=== PATIENT | male | born 1995 ===

== ENCOUNTER 2022-04-27 10:31 | Outpatient (REF) | payer BC, SELFPAY ==
[2022-04-27 12:00] LABS: Hematocrit 47.6 % (42.0-52.0); Hemoglobin 15.8 g/dl (14.0-18.0); Mean Corpuscular HGB Conc 33.2 g/dl (31.0-36.0); Mean Corpuscular Hemoglobin 28.7 pg (27.0-33.0); Mean Corpuscular Volume 86.5 fL (80.0-98.0); Mean Platelet Volume 10.6 fL (9.4-12.4); Platelet Count 255 X10*3/uL (160-400); Red Cell Distribution Width 12.5 % (11.0-16.0); White Blood Count 4.5 X10*3/uL (4.8-10.8)
[2022-04-27 12:30] LABS: Alanine Aminotransferase 65 U/L (0-40); Albumin Level 4.7 g/dL (3.5-5.0); Alkaline Phosphatase 55 U/L (39-117); Anion Gap 16 (12-20); Aspartate Amino Transferase 33 U/L (5-37); Bilirubin Total 0.6 mg/dL (0.0-1.0); Blood Urea Nitrogen 17 mg/dL (9-16); Calcium 9.8 mg/dL (8.4-10.2); Carbon Dioxide 27 mmol/L (22-29); Chloride 102 mmol/L (96-108); Cholesterol 163 mg/dL; Estimated Glomerular Filt Rate > 60; Glucose Fasting 137 mg/dL (60-99); HDL Cholesterol 35 mg/dL; LDL Cholesterol Calculated 110 mg/dl; Potassium 4.6 mmol/L (3.3-5.1); Sodium 140 mmol/L (135-145); Triglycerides 91 mg/dL
[2022-04-27 13:25] LABS: Folate 15.5 ng/mL (> or = 4.0); Vitamin B12 523 pg/mL (200-900)
== END 2022-04-27 10:32 | disposition home or self-care (01) ==
LOC: HO.LAB 10:31
PROVIDERS: PCP Physician Assistant; Visit Provider Physician Assistant
DX: Z13.220 Encounter for screening for lipoid disorders (principal); Z13.29 Encounter for screening for other suspected endocrine disorder; E53.8 Deficiency of other specified B group vitamins; R20.2 Paresthesia of skin
CPT/HCPCS: 36415; 80053; 80061; 82607; 82746; 84443; 85027

== ENCOUNTER 2022-05-18 10:06 | Outpatient (REF) | payer BC, SELFPAY ==
[2022-05-18 11:05] LABS: Estimated Average Glucose 151 mg/dL; Hemoglobin A1c % 6.9 %
[2022-05-18 11:16] LABS: Anion Gap 13 (12-20); Blood Urea Nitrogen 17 mg/dL (9-16); Calcium 9.3 mg/dL (8.4-10.2); Carbon Dioxide 27 mmol/L (22-29); Chloride 104 mmol/L (96-108); Estimated Glomerular Filt Rate > 60; Glucose Fasting 147 mg/dL (60-99); Potassium 4.6 mmol/L (3.3-5.1); Sodium 139 mmol/L (135-145)
== END 2022-05-18 10:07 | disposition home or self-care (01) ==
LOC: HO.LAB 10:06
PROVIDERS: PCP Physician Assistant; Visit Provider Physician Assistant
DX: R73.01 Impaired fasting glucose (principal)
CPT/HCPCS: 36415; 80048; 83036

== ENCOUNTER 2023-05-03 13:54 | Outpatient (AMB) | payer BC, SELFPAY ==
--- NOTE | 2023-05-03 13:56 | MHC.PC.OV ---
Vital Signs 05/03/23 13:58 Height 5 ft 7.2 in Weight 197 lb 6 oz BMI 30.7 BP 130/70 Blood Pressure Location Lt brachial Position Sitting Pulse 70 Pulse Source Pulse Oximeter Pulse Oximetry (%) 97 Oxygen Delivery Method Room Air Intake Visit Reasons: Samanthay, abdominal pain, 04/13 Intake Note: Patient is here to follow-up after a visit the emergency department at [facility] on 04/13/23. 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: Not Required per policy Accompanied by: Self / Same As Patient Allergies No Known Allergies [No Known Allergies*] Allergy (Verified 05/03/23 14:05) Medication List - Last Reconciled 05/03/23 by Feliz Louie PA-C metformin 500 mg PO DAILY 30 days Tobacco use date assessed: 05/03/23 Dental Screening Dental Screen Date: 05/03/23 Did you have a dental visit in the last 12 months?: No Did you have a dental problem in the last 6 months where you did not have access to dental care?: No Was dental information given to patient?: No HPI Swati, abdominal pain, 04/13 HPI Details Patient is a 28-year-old male here today for an ER follow-up visit. Was seen at the ER on April 13 for acute abdominal pain. Abdominal pain was relocated in the right upper quadrant and radiated to his back. He did get received a CT scan which did show a large fatty liver and labs/urine where stable. Otherwise denies any fever, changes in stool or urine. He unfortunately continues to have the right upper quadrant pain/ right flank pain to less severity and only intermittent. He denies any of his pain being associated with his diet. [facility] Surgical History No pertinent past surgical history Family History Mother FH: HTN (hypertension) Lupus Fibromyalgia COPD (chronic obstructive pulmonary disease) Osteoarthritis Degenerative, intervertebral disc, cervical Type II diabetes mellitus Mental health disorder Father Type II diabetes mellitus Arthritis Social History Housing: Apartment Alcohol intake: current Alcohol intake frequency: a few times a month Alcohol type: beer and hard liquor Patient Tobacco Use Status: Former Tobacco user Tobacco use type: Cigarette Cigarettes Per Day: 3 Years Smoked: Pt stop 12/21/21 e-Cigarette/Vaping Use: Former Use Second Hand Smoke Exposure: Yes Substance Use Type: Marijuana service: No Current occupational status: employed 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 Robert Alvarado, Katie Adame, Patel Vaughn and colleagues, with an educational jenny from [employer]. Review of Systems Const Denies headache(s) Eyes Denies loss of vision ENT Denies vertigo, Denies dizziness, Denies headache(s) and Denies sore throat Card Denies chest pain, Denies leg edema and Denies lightheadedness Resp Denies cough, Denies hemoptysis and Denies wheezing GI Denies abdominal pain, Denies melena, Denies constipation, Denies diarrhea and Denies vomiting Denies dysuria, Denies urinary frequency and Denies urinary urgency Musc Denies arthralgias, Denies joint swelling, Denies numbness and Denies tingling Neuro Denies Abnormal speech present, Denies behavioral changes, Denies vertigo, Denies dizziness, Denies headache(s), Denies loss of vision, Denies memory loss, Denies numbness and Denies tingling Psych Denies anxiety, Denies behavioral changes, Denies depression, Denies memory loss and Denies panic attacks Jason/Lymph Denies easy bleeding and Denies easy bruising Aller/Immun Denies wheezing Physical exam (Primary Care) Vital Signs: Last Vital Signs Pulse 70 05/03/23 13:58 BP 130/70 05/03/23 13:58 Pulse Ox 97 05/03/23 13:58 Oxygen Delivery Method Room Air 05/03/23 13:58 BMI result Body Mass Index 30.7 Tobacco/Smoking Status: Tobacco use Status Tobacco use date assessed 05/03/23 05/03/23 14:03 Patient Tobacco Use Status Former Tobacco user 05/03/23 14:03 Tobacco use type Cigarette 05/03/23 14:03 e-Cigarette/Vaping Use Former Use 05/03/23 14:03 Thrive Assessment: Date of Thrive Assessment Date Thrive assessed 11/30/22 05/03/23 14:03 Const General: healthy appearing, no acute distress, alert and awake Nutritional Appearance: well nourished Orientation/consciousness: oriented to person, oriented to place and oriented to time HENMT Ears: TM's normal bilaterally General nose exam: Normal nasal mucous membranes and turbinates present Eyes Conjunctivae: conjunctivae normal Sclerae: sclerae normal Pupils: Equal, round and reactive pupils present Neck Neck: Yes no lymphadenopathy and Yes no JVD Thyroid: Thyroid normal Carotids: no bruits Resp Effort & Inspection: normal respiratory effort and not tachypneic Auscultation: no crackles, no rales, no rhonchi and no wheezes Cardio Rate: regular rate Rhythm: regular rhythm Heart sounds: no murmurs and normal S1 and S2 GI Palpation (GI): Soft to palpation, nontender, no hepatomegaly and no splenomegaly Auscultation: normal bowel sounds Abdomen image: 1. PAIN TO PALPATION IN THE AREA OUTLINED. Skin General skin exam: no rashes or lesions noted and dry skin Neuro General: oriented to person, oriented to place and oriented to time Cranial nerves: Yes Equal, round and reactive pupils present Speech: No Abnormal speech present Gait exam (Neuro): Normal gait present Motor exam (neuro): no tremor noted Extrem Right upper extremity: full ROM Left upper extremity: full ROM Right lower extremity: full ROM; no edema Left lower extremity: full ROM; no edema Psych Mental Status: mental status grossly normal Speech and movement: Normal speech and movement present Affect: normal affect Attitude: cooperative Thought process: Normal thought process present Assessment and Plan Assessment & Plan (1) Right flank pain: Code(s): R10.9 - Unspecified abdominal pain Plan: Patient's pain is mostly located in right retro peritoneal region. Some concern for nephrolithiasis in this case thus will send for ultrasound of right kidney to evaluate for nephrolithiasis. Will also send for urine to evaluate for UTI. If no concerning findings likely musculoskeletal etiology (2) RUQ abdominal pain: Code(s): R10.11 - Right upper quadrant pain Plan: As per HPI patient was seen several weeks ago for right upper quadrant/right flank pain, CT of abdomen without any acute findings though did have fatty liver disease. Labs in urine were reported as unremarkable. Will get dedicated ultrasound of abdomen to evaluate liver and gallbladder. (3) Fatty liver: Code(s): K76.0 - Fatty (change of) liver, not elsewhere classified Plan: As above Orders: Orders UA CC w/rflx Micro + Cult 05/03/23 R10.9 - Unspecified abdominal pain, R30.0 - Dysuria US renal RT 05/03/23 R10.9 - Unspecified abdominal pain US abdomen limited 05/03/23 K76.0 - Fatty (change of) liver, not elsewhere classified, R10.11 - Right upper quadrant pain Coding Level of Care Code Est Pt Level 4 (93647) Diagnoses Right flank pain R10.9 RUQ abdominal pain R10.11 Fatty liver K76.0
[2023-05-03 13:58] VITALS: BP 130/70; PULSE 70; O2SAT 97; BMI 30.7
== END 2023-05-03 14:29 | disposition home or self-care (01) ==
PROVIDERS: PCP Physician Assistant; Visit Provider Physician Assistant
DX: R10.9 Unspecified abdominal pain (principal); R10.11 Right upper quadrant pain; K76.0 Fatty (change of) liver, not elsewhere classified
CPT/HCPCS: 99214

== ENCOUNTER 2023-05-22 08:59 | Outpatient (REF) | payer BC, SELFPAY ==
--- NOTE | ~2023-05-22 | US_ITS ---
EXAMINATION: US ABDOMEN LIMITED CLINICAL INFORMATION: Right upper quadrant pain. COMPARISON: None available. TECHNIQUE: Real-time imaging of the right upper quadrant abdominal viscera. FINDINGS: PANCREAS: Normal head and body, tail is partly obscured by bowel gas LIVER: The liver is normal in size. The liver contour is normal. There is diffuse increased liver parenchymal echogenicity, consistent with hepatic steatosis. No focal hepatic lesion. There is no intrahepatic biliary duct dilatation seen. GALLBLADDER: Normal. The gallbladder is physiologically distended without evidence of stones, sludge, polyps, wall thickening or pericholecystic fluid. COMMON BILE DUCT: Normal in caliber measuring 0.4 cm in diameter. RIGHT KIDNEY: Normal. No hydronephrosis. No renal calculi or focal parenchymal lesions. The kidney measures 11.4 cm in maximum dimension. FREE FLUID: None. US/US abdomen limited IMPRESSION: Hepatic steatosis.
== END 2023-05-22 09:00 | disposition home or self-care (01) ==
LOC: HO.HMGCX 08:59
PROVIDERS: PCP Physician Assistant; Visit Provider Physician Assistant
DX: R10.11 Right upper quadrant pain (principal); K76.0 Fatty (change of) liver, not elsewhere classified
CPT/HCPCS: 76705

== ENCOUNTER 2023-06-13 07:53 | Outpatient (REF) | payer BC, SELFPAY ==
[2023-06-13 08:38] LABS: Hematocrit 44.6 % (42.0-52.0); Hemoglobin 15.1 g/dl (14.0-18.0); Mean Corpuscular HGB Conc 33.9 g/dl (31.0-36.0); Mean Corpuscular Hemoglobin 29.3 pg (27.0-33.0); Mean Corpuscular Volume 86.4 fL (80.0-98.0); Mean Platelet Volume 10.5 fL (9.4-12.4); Platelet Count 192 X10*3/uL (160-400); Red Blood Count 5.16 X10*6/uL (4.60-5.80); Red Cell Distribution Width 13.1 % (11.0-16.0); White Blood Count 4.3 X10*3/uL (4.8-10.8)
[2023-06-13 09:18] LABS: Alanine Aminotransferase 91 U/L (0-40); Albumin Level 4.6 g/dL (3.5-5.0); Alkaline Phosphatase 56 U/L (39-117); Anion Gap 15 (12-20); Aspartate Amino Transferase 52 U/L (5-37); Bilirubin Total 0.4 mg/dL (0.0-1.0); Blood Urea Nitrogen 17 mg/dL (9-16); Calcium 9.7 mg/dL (8.4-10.2); Carbon Dioxide 25 mmol/L (22-29); Chloride 103 mmol/L (96-108); Cholesterol 171 mg/dL (<200); Estimated Glomerular Filt Rate > 60; Glucose Fasting 148 mg/dL (60-99); HDL Cholesterol 38 mg/dL (>40); LDL Cholesterol Calculated 119 mg/dL (<100); Potassium 4.2 mmol/L (3.3-5.1); Sodium 139 mmol/L (135-145); Total Protein 7.8 g/dL (6.5-8.0); Triglycerides 73 mg/dL (<150)
[2023-06-13 09:26] LABS: TSH reflex Free T4 2.28 uIU/mL (0.32-4.0)
[2023-06-13 09:57] LABS: Appearance Urine Clear; Color Urine Dark Yellow; Glucose Urine UA Negative (Negative); Leukocyte Esterase Urine Negative (Negative); Nitrite Urine Negative (Negative); PH 5.5 (5.0-9.0); Specific Gravity - Urine >= 1.030 (1.005-1.025); UMIC TRIGGER UACC YES; Urine Blood Negative (Negative); Urine Ketones Negative (Negative); Urine Protein 100 (2+) mg/dL (Neg-Trace)
[2023-06-13 10:08] LABS: Bacteria Urine None Seen (None Seen); Hyaline Casts Urine 0-2 /LPF (0-2); RBC Urine 0-2 /HPF (0-2); Squamous Epithelial Cell Urine 0-2 /HPF (0-2); WBC Urine 0-5 /HPF (0-5)
== END 2023-06-13 07:54 | disposition home or self-care (01) ==
LOC: HO.LAB 07:53
PROVIDERS: PCP Physician Assistant; Visit Provider Physician Assistant
DX: E66.09 Other obesity due to excess calories (principal); Z68.30 Body mass index [BMI] 30.0-30.9, adult; E11.9 Type 2 diabetes mellitus without complications
CPT/HCPCS: 36415; 80053; 80061; 81001; 81003; 84443; 85027

== ENCOUNTER 2023-06-14 15:13 | Outpatient (AMB) | payer BC, SELFPAY ==
--- NOTE | 2023-06-14 15:20 | MHC.PC.OV ---
Vital Signs 06/14/23 15:21 Height 5 ft 7.2 in Weight 197 lb 2 oz BMI 30.7 BP 132/84 Blood Pressure Location Lt brachial Position Sitting Respiration 17 Pulse 65 Pulse Source Pulse Oximeter Pulse Oximetry (%) 98 Oxygen Delivery Method Room Air Intake Visit Reasons: f/u DMII Intake Note: Patient is here to follow up on DMII. Instructional Technology Coordinator Required: No Accompanied by: Self / Same As Patient Allergies No Known Allergies [No Known Allergies*] Allergy (Verified 06/14/23 15:31) Tobacco use date assessed: 05/03/23 Dental Screening Dental Screen Date: 06/14/23 Did you have a dental visit in the last 12 months?: Yes Did you have a dental problem in the last 6 months where you did not have access to dental care?: No Was dental information given to patient?: Patient has dentist HPI f/u DMII HPI Details Patient is a 28-year-old male here today for a follow-up visit.? Patient has a past medical history significant for type 2 diabetes, elevated blood pressure readings, obesity. .. Obesity :? Has been able to lose a few lb since last office visit.? Has been working on his lifestyle modifications.. . Type 2 diabetes:? Has not been taking any metformin. Today's A1c still above 6.5. He is willing to start metformin 500 once a day. Lipid panel showing slightly elevated LDL for his cardiovascular risk. We disc discuss the possible need of starting statin medication though will continue lifestyle modifications and recheck lipids in the next 4 months.? He recently started going back to the gym ., Fatty liver disease: Most recent ultrasound abdomen showing consistent evidence of fatty liver disease. Most recent liver enzymes slightly elevated. He will work on lifestyle modifications and weight reduction as treatment for this fatty liver disease. Laboratory Tests 05/18/22 11/30/22 06/13/23 10:20 15:34 08:17 WBC 4.3 L Hgb 15.1 Creatinine 0.85 Fasting Glucose 148 H Hgb A1c (Clinic) 6.9 H Hemoglobin A1c % 6.9 ALT 91 H Cholesterol 171 LDL Cholesterol, C alc 119 H PFSH Surgical History No pertinent past surgical history Family History Mother FH: HTN (hypertension) Lupus Fibromyalgia COPD (chronic obstructive pulmonary disease) Osteoarthritis Degenerative, intervertebral disc, cervical Type II diabetes mellitus Mental health disorder Father Type II diabetes mellitus Arthritis Social History Housing: Apartment Alcohol intake: current Alcohol intake frequency: a few times a month Alcohol type: beer and hard liquor Patient Tobacco Use Status: Former Tobacco user Tobacco use type: Cigarette Cigarettes Per Day: 3 Years Smoked: Pt stop 12/21/21 e-Cigarette/Vaping Use: Former Use Second Hand Smoke Exposure: Yes Substance Use Type: Marijuana service: No Current occupational status: employed 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 Robert Alvarado, Katie Adame, Patel Vaughn and colleagues, with an educational jenny from [employer]. Review of Systems Const Denies headache(s) Eyes Denies loss of vision ENT Denies vertigo, Denies dizziness, Denies headache(s) and Denies sore throat Card Denies chest pain, Denies leg edema and Denies lightheadedness Resp Denies cough, Denies hemoptysis and Denies wheezing GI Denies abdominal pain, Denies melena, Denies constipation, Denies diarrhea and Denies vomiting Denies dysuria, Denies urinary frequency and Denies urinary urgency Musc Denies arthralgias, Denies joint swelling, Denies numbness and Denies tingling Neuro Denies Abnormal speech present, Denies behavioral changes, Denies vertigo, Denies dizziness, Denies headache(s), Denies loss of vision, Denies memory loss, Denies numbness and Denies tingling Psych Denies anxiety, Denies behavioral changes, Denies depression, Denies memory loss and Denies panic attacks Jason/Lymph Denies easy bleeding and Denies easy bruising Aller/Immun Denies wheezing Physical exam (Primary Care) Vital Signs: Last Vital Signs Pulse 65 06/14/23 15:21 Resp 17 06/14/23 15:21 BP 132/84 06/14/23 15:21 Pulse Ox 98 06/14/23 15:21 Oxygen Delivery Method Room Air 06/14/23 15:21 BMI result Body Mass Index 30.7 Tobacco/Smoking Status: Tobacco use Status Tobacco use date assessed 05/03/23 06/14/23 15:25 Patient Tobacco Use Status Former Tobacco user 06/14/23 15:25 Tobacco use type Cigarette 06/14/23 15:25 e-Cigarette/Vaping Use Former Use 06/14/23 15:25 Thrive Assessment: Date of Thrive Assessment Date Thrive assessed 11/30/22 06/14/23 15:25 Const General: healthy appearing, no acute distress, alert and awake Nutritional Appearance: well nourished Orientation/consciousness: oriented to person, oriented to place and oriented to time HENMT Ears: TM's normal bilaterally General nose exam: Normal nasal mucous membranes and turbinates present Eyes Conjunctivae: conjunctivae normal Sclerae: sclerae normal Pupils: Equal, round and reactive pupils present Neck Neck: Yes no lymphadenopathy and Yes no JVD Thyroid: Thyroid normal Carotids: no bruits Resp Effort & Inspection: normal respiratory effort and not tachypneic Auscultation: no crackles, no rales, no rhonchi and no wheezes Cardio Rate: regular rate Rhythm: regular rhythm Heart sounds: no murmurs and normal S1 and S2 GI Palpation (GI): Soft to palpation, nontender, no hepatomegaly and no splenomegaly Auscultation: normal bowel sounds Skin General skin exam: no rashes or lesions noted and dry skin Neuro General: oriented to person, oriented to place and oriented to time Cranial nerves: Yes Equal, round and reactive pupils present Speech: No Abnormal speech present Gait exam (Neuro): Normal gait present Motor exam (neuro): no tremor noted Extrem Right upper extremity: full ROM Left upper extremity: full ROM Right lower extremity: full ROM; no edema Left lower extremity: full ROM; no edema Psych Mental Status: mental status grossly normal Speech and movement: Normal speech and movement present Affect: normal affect Attitude: cooperative Thought process: Normal thought process present Results AMB Hemoglobin A1c AMB Hemoglobin A1c 6.7 % Last Edit by JESUS Bravo on 06/14/23 15:35 Results Reviewed Results Reviewed: Laboratory Last Values Hgb A1c (Clinic) 6.7 % (4.0-6.0) H 06/14/23 15:34 Assessment and Plan Assessment & Plan (1) DMII (diabetes mellitus, type 2): Code(s): E11.9 - Type 2 diabetes mellitus without complications Qualifiers: Diabetes mellitus complication status: without complication Diabetes mellitus rat exterminator insulin use: without rat exterminator use Qualified Code(s): E11.9 - Type 2 diabetes mellitus without complications Plan: Patient's type 2 diabetes fairly controlled though like tighter control due to his age. He is willing to start metformin 500 mg daily, Advised him to be more adherent to the medication on a daily basis. Warned about side effects of GI discomfort. Goal A1c to be below 6.5 (2) Obese: Code(s): E66.9 - Obesity, unspecified Qualifiers: Body mass index: BMI 30.0-30.9 Obesity classification: adult class 1 (BMI 30 - 34.9) Obesity type: due to excess calories Serious obesity comorbidity presence: without serious comorbidity Qualified Code(s): E66.09 - Other obesity due to excess calories; Z68.30 - Body mass index [BMI] 30.0-30.9, adult Plan: Patient does understand his BMI is slightly above 30 and continues to work on being more physically active and adapting to better eating habits to reduce his weight further. (3) HLD (hyperlipidemia): Code(s): E78.5 - Hyperlipidemia, unspecified Qualifiers: Hyperlipidemia type: mixed hyperlipidemia Qualified Code(s): E78.2 - Mixed hyperlipidemia Plan: Patient's most recent lipid panel showed noting an LDL of 119. Goal LDL to be below 100. Will work on lifestyle modifications to reduce high cholesterol foods in his diet. Orders: Orders Comprehensive [place]. Panel Fast 06/14/23 E11.9 - Type 2 diabetes mellitus without complications, E78.5 - Hyperlipidemia, unspecified Microalbumin, Random (w Creat) 06/14/23 E78.5 - Hyperlipidemia, unspecified, I10 - Essential (primary) hypertension Complete Blood Count no Diff 06/14/23 E78.5 - Hyperlipidemia, unspecified, I10 - Essential (primary) hypertension Lipid Panel 06/14/23 E78.5 - Hyperlipidemia, unspecified, I10 - Essential (primary) hypertension AMB Hemoglobin A1c 06/14/23 E11.9 - Type 2 diabetes mellitus without complications Medications: Refilled metformin 500 mg PO DAILY 30 days 30 tabs 3RF E11.9 - Type 2 diabetes mellitus without complications Coding Level of Care Code Est Pt Level 4 (20951) Diagnoses Type 2 diabetes mellitus without complication, without long-term current use of insulin E11.9 Diabetes mellitus complication status: without complication Diabetes mellitus senior living insulin use: without senior living use Class 1 obesity due to excess calories without serious comorbidity with body mass index (BMI) of 30.0 to 30.9 in adult E66.09; Z68.30 Body mass index: BMI 30.0-30.9 Obesity classification: adult class 1 (BMI 30 - 34.9) Obesity type: due to excess calories Serious obesity comorbidity presence: without serious comorbidity Mixed hyperlipidemia E78.2 Hyperlipidemia type: mixed hyperlipidemia
[2023-06-14 15:21] VITALS: BP 132/84; PULSE 65; RESP 17; O2SAT 98; BMI 30.7
== END 2023-06-14 15:49 | disposition home or self-care (01) ==
PROVIDERS: PCP Physician Assistant; Visit Provider Physician Assistant
DX: E11.9 Type 2 diabetes mellitus without complications (principal)
CPT/HCPCS: 83036; 99214

== ENCOUNTER 2023-10-18 08:37 | Outpatient (REF) | payer BC, SELFPAY ==
[2023-10-18 09:13] LABS: Hematocrit 46.2 % (42.0-52.0); Hemoglobin 15.8 g/dl (14.0-18.0); Mean Corpuscular HGB Conc 34.2 g/dl (31.0-36.0); Mean Corpuscular Hemoglobin 28.7 pg (27.0-33.0); Mean Corpuscular Volume 83.8 fL (80.0-98.0); Mean Platelet Volume 10.6 fL (9.4-12.4); Platelet Count 210 X10*3/uL (160-400); Red Blood Count 5.51 X10*6/uL (4.60-5.80); Red Cell Distribution Width 12.5 % (11.0-16.0); White Blood Count 4.1 X10*3/uL (4.8-10.8)
[2023-10-18 09:47] LABS: Alanine Aminotransferase 56 U/L (0-40); Albumin Level 4.5 g/dL (3.5-5.0); Alkaline Phosphatase 56 U/L (39-117); Anion Gap 12 (12-20); Aspartate Amino Transferase 34 U/L (5-37); Bilirubin Total 0.7 mg/dL (0.0-1.0); Blood Urea Nitrogen 20 mg/dL (9-16); Calcium 9.5 mg/dL (8.4-10.2); Carbon Dioxide 27 mmol/L (22-29); Chloride 102 mmol/L (96-108); Cholesterol 127 mg/dL (<200); Estimated Glomerular Filt Rate > 60; Glucose Fasting 173 mg/dL (60-99); HDL Cholesterol 35 mg/dL (>40); LDL Cholesterol Calculated 82 mg/dL (<100); Potassium 3.9 mmol/L (3.3-5.1); Sodium 137 mmol/L (135-145); Total Protein 7.7 g/dL (6.5-8.0); Triglycerides 50 mg/dL (<150)
[2023-10-18 09:51] LABS: Creatinine Urine 269.76 mg/dL; Microalbum/Creatinine Ratio Ur 15.1 ug/mg cr (<30)
[2023-10-18 09:54] LABS: Appearance Urine Clear; Color Urine Dark Yellow; Glucose Urine UA Negative (Negative); Leukocyte Esterase Urine Negative (Negative); Nitrite Urine Negative (Negative); Specific Gravity - Urine >= 1.030 (1.005-1.025); Urine Blood Negative (Negative); Urine Ketones Trace mg/dL (Negative); Urine Protein Trace mg/dL (Neg-Trace)
== END 2023-10-18 08:38 | disposition home or self-care (01) ==
LOC: HO.LAB 08:37
PROVIDERS: PCP Physician Assistant; Visit Provider Physician Assistant
DX: R30.0 Dysuria (principal); R10.9 Unspecified abdominal pain; E11.9 Type 2 diabetes mellitus without complications; E78.5 Hyperlipidemia, unspecified; I10 Essential (primary) hypertension
CPT/HCPCS: 36415; 80053; 80061; 81003; 82043; 82570; 85027

== ENCOUNTER 2023-10-18 09:53 | Outpatient (AMB) | payer BC, SELFPAY ==
--- NOTE | 2023-10-18 09:59 | A.OFFPC_ITS ---
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 Accompanied by: Self / Same As Patient Allergies No Known Allergies [No Known Allergies*] Allergy (Verified 10/18/23 10:12) Medication List - Last Reconciled 10/18/23 by Feliz Louie PA-C metformin 500 mg PO DAILY 30 days Tobacco use date assessed: 10/18/23 Dental Screening Dental Screen Date: 10/18/23 Did you have a dental visit in the last 12 months?: Yes Did you have a dental problem in the last 6 months where you did not have access to dental care?: No Was dental information given to patient?: Patient has dentist HPI f/u DMII / HLD HPI Details Patient is a 28-year-old male here today for a follow-up visit.? Patient has a past medical history significant for type 2 diabetes, elevated blood pressure readings, obesity. .. Obesity :? Has been able to lose a few lb since last office visit.? Has been working on his lifestyle modifications.. . Type 2 diabetes:? Has not been taking any metformin. Today's A1c 7.4 from 6.7 . Has not been taking his metformin on a daily basis. Needs refill . He is willing to start metformin 500 once a day. Hyperlipidemia: Most recent lipid panel showing much improved total cholesterol and LDL. We disc discuss the possible need of starting statin medication though will continue lifestyle modifications and recheck lipids in the next 4 months.? He recently started going back to the gym ., Fatty liver disease: Most recent ultrasound abdomen showing consistent evidence of fatty liver disease. Most recent liver enzymes slightly elevated though have improved since he has been able to manage with weight loss.. He will work on lifestyle modifications and weight reduction as treatment for this fatty liver disease. Laboratory Tests 06/13/23 06/13/23 10/18/23 08:17 08:17 08:45 WBC RBC Fasting Glucose AST ALT 91 H LDL Cholesterol, C alc 119 H Urine Microalbumin 41.0 10/18/23 10/18/23 08:46 08:46 WBC 4.1 L RBC 5.51 Fasting Glucose 173 H AST 34 ALT 56 H LDL Cholesterol, C alc 82 Urine Microalbumin PFSH Surgical History No pertinent past surgical history Family History Mother FH: HTN (hypertension) Lupus Fibromyalgia COPD (chronic obstructive pulmonary disease) Osteoarthritis Degenerative, intervertebral disc, cervical Type II diabetes mellitus Mental health disorder Father Type II diabetes mellitus Arthritis Social History Housing: Apartment Alcohol intake: current Alcohol intake frequency: a few times a month Alcohol type: beer and hard liquor Patient Tobacco Use Status: Former Tobacco user Tobacco use type: Cigarette Cigarettes Per Day: 3 Years Smoked: Pt stop 12/21/21 e-Cigarette/Vaping Use: Former Use Second Hand Smoke Exposure: Yes Substance Use Type: Marijuana service: No Current occupational status: employed 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 Cognitive needs: No Hearing needs: No Vision needs: Yes (glasses) Questionnaire PHQ-9 Over the last 2 weeks, how often have you been bothered by any of the following problems? 1. Little interest or pleasure in doing things: not at all 2. Feeling down, depressed, or hopeless: not at all 3. Trouble falling or staying asleep, or sleeping too much: not at all 4. Feeling tired or having little energy: not at all 5. Poor appetite or overeating: not at all 6. Feeling bad about yourself - or that you are a failure or have let yourself or your family down: not at all 7. Trouble concentrating on things, such as reading the newspaper or watching television: not at all 8. Moving or speaking so slowly that other people could have noticed. Or the opposite - being so fidgety or restless that you have been moving around a lot more than usual: not at all 9. Thoughts that you would be better off or of hurting yourself in some way: not at all Total score: 0 Depression Screening Interpretation: Negative Depression Screening Done: Yes 78146 - PHQ-9 Billing: Yes Source: Developed by Drs. Robert Alvarado, Katie BPatel Saha and colleagues, with an educational jenny from [employer]. Thrive Questionnaire Date Thrive assessed: 10/18/23 I am a: Patient What is your living situation today?: I have a steady place to live Within the past 12 months, did the food you bought not last and you didn't have the money to get more?: Never true Within the past 12 months, did you worry whether your food would run out before you got money to buy more?: Never true Do you have trouble paying for medicines?: No Do you have trouble getting transportation to medical appointments?: No Do you have trouble paying your heating and electricity bill?: No Do you have trouble taking care of your child, family member or friend?: No Do you have trouble with day-to-day activities such as bathing, preparing meals, shopping, managing finances, etc.?: No Are you currently unemployed and looking for a job?: No Are you interested in more education?: No Please select the resources that you would like help with: None Currently or been in a relationship where the following occur: no concerns reported THRIVE Score: 0 AUDIT C Alcohol Use Questionnaire (AUDIT-C) 1. How often do you have a drink containing alcohol?: Monthly or less 2. How many drinks containing alcohol do you have on a typical day when you are drinking?: 1 or 2 (Beer and hard liquor) 3. How often do you have six or more drinks on one occasion?: Never Total Score: 1 EDUARDO-7 AMB Questionnaire EDUARDO-7 Date EDUARDO - 7 assessed: 10/18/23 Feeling nervous, anxious, or on edge: 0 = Not at all Not being able to stop or control worryin = Not at all Worrying too much about different things: 0 = Not at all Trouble relaxin = Not at all Being so restless that it is hard to sit still: 0 = Not at all Becoming easily annoyed or irritable: 0 = Not at all Feeling afraid as if something awful might happen: 0 = Not at all Total EDUARDO-7 score (0-4 normal; 5-9 mild; 10-14 moderate; 15-21 severe): 0 Source: Developed by Drs. Robert Alvarado, Patel Mattson and colleagues, with an educational jenny from [employer]. EDUARDO-7 Assessment Billing EDUARDO-7 Assessment Tool: EDUARDO-7 Assessment 97758 Review of Systems Const Denies headache(s) Eyes Denies loss of vision ENT Denies vertigo, Denies dizziness, Denies headache(s) and Denies sore throat Card Denies chest pain, Denies leg edema and Denies lightheadedness Resp Denies cough, Denies hemoptysis and Denies wheezing GI Denies abdominal pain, Denies melena, Denies constipation, Denies diarrhea and Denies vomiting Denies dysuria, Denies urinary frequency and Denies urinary urgency Musc Denies arthralgias, Denies joint swelling, Denies numbness and Denies tingling Neuro Denies Abnormal speech present, Denies behavioral changes, Denies vertigo, Denies dizziness, Denies headache(s), Denies loss of vision, Denies memory loss, Denies numbness and Denies tingling Psych Denies anxiety, Denies behavioral changes, Denies depression, Denies memory loss and Denies panic attacks Jason/Lymph Denies easy bleeding and Denies easy bruising Aller/Immun Denies wheezing Physical exam (Primary Care) Vital Signs: Last Vital Signs Pulse 85 10/18/23 10:00 Resp 17 10/18/23 10:00 BP 122/82 10/18/23 10:00 Pulse Ox 96 10/18/23 10:00 Oxygen Delivery Method Room Air 10/18/23 10:00 BMI result Body Mass Index 30.0 Tobacco/Smoking Status: Tobacco use Status Tobacco use date assessed 10/18/23 10/18/23 10:02 Patient Tobacco Use Status Former Tobacco user 10/18/23 10:00 Tobacco use type Cigarette 10/18/23 10:00 e-Cigarette/Vaping Use Former Use 10/18/23 10:00 PHQ-9: PHQ-9 Score PHQ-9: Total score 0 10/18/23 10:14 Depression Screening Interpretation: Negative Thrive Assessment: Date of Thrive Assessment Date Thrive assessed 10/18/23 10/18/23 10:02 Currently or been in a relationship where the following occur: no concerns reported Const General: healthy appearing, no acute distress, alert and awake Nutritional Appearance: well nourished Orientation/consciousness: oriented to person, oriented to place and oriented to time HENMT Ears: TM's normal bilaterally General nose exam: Normal nasal mucous membranes and turbinates present Eyes Conjunctivae: conjunctivae normal Sclerae: sclerae normal Pupils: Equal, round and reactive pupils present Neck Neck: Yes no lymphadenopathy and Yes no JVD Thyroid: Thyroid normal Carotids: no bruits Resp Effort & Inspection: normal respiratory effort and not tachypneic Auscultation: no crackles, no rales, no rhonchi and no wheezes Cardio Rate: regular rate Rhythm: regular rhythm Heart sounds: no murmurs and normal S1 and S2 GI Palpation (GI): Soft to palpation, nontender, no hepatomegaly and no splenomegaly Auscultation: normal bowel sounds Skin General skin exam: no rashes or lesions noted and dry skin Neuro General: oriented to person, oriented to place and oriented to time Cranial nerves: Yes Equal, round and reactive pupils present Speech: No Abnormal speech present Gait exam (Neuro): Normal gait present Motor exam (neuro): no tremor noted Extrem Right upper extremity: full ROM Left upper extremity: full ROM Right lower extremity: full ROM; no edema Left lower extremity: full ROM; no edema Psych Mental Status: mental status grossly normal Speech and movement: Normal speech and movement present Affect: normal affect Attitude: cooperative Thought process: Normal thought process present Results AMB Hemoglobin A1c AMB Hemoglobin A1c 7.4 % Last Edit by JESUS Bravo on 10/18/23 10:15 Assessment and Plan Assessment & Plan (1) DMII (diabetes mellitus, type 2): Code(s): E11.9 - Type 2 diabetes mellitus without complications Qualifiers: Diabetes mellitus usp insulin use: without usp use Diabetes mellitus complication status: without complication Qualified Code(s): E11.9 - Type 2 diabetes mellitus without complications Plan: Patient's type 2 diabetes suboptimally controlled with A1c is 7.4. Has been noncompliant with his metformin and agrees to restart. , Advised him to be more adherent to the medication on a daily basis. Warned about side effects of GI discomfort. Goal A1c to be below 6.5 (2) Obese: Code(s): E66.9 - Obesity, unspecified Qualifiers: Obesity type: due to excess calories Obesity classification: adult class 1 (BMI 30 - 34.9) Serious obesity comorbidity presence: without serious comorbidity Body mass index: BMI 30.0-30.9 Qualified Code(s): E66.09 - Other obesity due to excess calories; Z68.30 - Body mass index [BMI] 30.0-30.9, adult Plan: Patient does understand his BMI is slightly above 30 and continues to work on being more physically active and adapting to better eating habits to reduce his weight further. (3) HLD (hyperlipidemia): Code(s): E78.5 - Hyperlipidemia, unspecified Qualifiers: Hyperlipidemia type: mixed hyperlipidemia Qualified Code(s): E78.2 - Mixed hyperlipidemia Plan: Patient's most recent lipid panel showed noting an LDL of 82. Goal LDL to be below 100. Will work on lifestyle modifications to reduce high cholesterol foods in his diet. Orders: Orders Comprehensive [place]. Panel Fast Today E11.9 - Type 2 diabetes mellitus without complications AMB Hemoglobin A1c Today E11.9 - Type 2 diabetes mellitus without complications Lipid Panel 6 Months E78.2 - Mixed hyperlipidemia Complete Blood Count no Diff 6 Months E11.9 - Type 2 diabetes mellitus without complications Hemoglobin A1c Today E11.9 - Type 2 diabetes mellitus without complications Medications: New lancets (FreeStyle Lancets) As directed 100 ea 3RF E11.9 - Type 2 diabetes mellitus without complications blood-glucose meter (FreeStyle [place] Lite kit) As directed 1 ea 0RF E11.9 - Type 2 diabetes mellitus without complications blood sugar diagnostic (FreeStyle Lite Strips) As directed 100 ea 3RF E11.9 - Type 2 diabetes mellitus without complications Changed From metformin 500 mg PO DAILY 30 days 30 tabs 3RF E11.9 - Type 2 diabetes mellitus without complications To metformin 500 mg PO DAILY 90 days 90 tabs 1RF E11.9 - Type 2 diabetes mellitus without complications Coding Level of Care Code Est Pt Level 4 (68184) Diagnoses Type 2 diabetes mellitus without complication, without long-term current use of insulin E11.9 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
[2023-10-18 10:00] VITALS: BP 122/82; PULSE 85; RESP 17; O2SAT 96
== END 2023-10-18 10:30 | disposition home or self-care (01) ==
PROVIDERS: PCP Physician Assistant; Visit Provider Physician Assistant
DX: E11.9 Type 2 diabetes mellitus without complications (principal); E66.09 Other obesity due to excess calories; Z68.30 Body mass index [BMI] 30.0-30.9, adult; E78.2 Mixed hyperlipidemia
CPT/HCPCS: 83036; 99214

== ENCOUNTER 2024-01-02 09:44 | Emergency (ER) | payer BC, SELFPAY ==
--- NOTE | ~2024-01-02 | CT_ITS ---
EXAMINATION: CT KNEE WITHOUT CONTRAST, RIGHT CLINICAL INFORMATION: Pain. Patient felt a pop while squatting. COMPARISON: None available. TECHNIQUE: Contiguous axial CT images of the right knee were obtained without contrast. Multiplanar reformats were provided and reviewed. This CT examination was performed using dose optimization techniques as appropriate, variously including the following: *Automated exposure control *Adjustment of mA and/or kV according to patient size (this includes techniques or standardized protocols for targeted exams where dose is matched to indication/reason for exam; i.e. extremities or head) *Use of iterative reconstruction technique DLP: 192 mGy-cm FINDINGS: No acute fracture or dislocation. Normal patellofemoral alignment. No significant joint space narrowing or marginal osteophytes. No concerning lytic or blastic osseous lesion. No evidence of avascular necrosis or bone infarcts. Small joint effusion. No soft tissue mass or fluid collection. Cruciate and collateral ligaments are grossly intact however, evaluation is significantly limited on CT examination. Menisci not well evaluated on CT. The visualized muscles and tendons are grossly intact. CT/CT knee RT wo IV con IMPRESSION: 1. No acute fracture or dislocation. 2. Small joint effusion.
[2024-01-02 10:12] VITALS: BP 134/78; PULSE 71; RESP 18; TEMP 36.9; O2SAT 96; BMI 29.6
--- NOTE | 2024-01-02 10:22 | ED_ITS ---
HPI - Extremity Injury (Lower) General Chief Complaint: Extremity Injury, Lower Stated Complaint: R Knee Injury 01/01/24 Time Seen by Provider: 01/02/24 10:04 Source: patient, RN notes reviewed and old records reviewed Mode of arrival: ambulatory Limitations: no limitations History of Present Illness HPI Narrative: 28-year-old male with pmhx significant for HDL, HTN, T2DM, and fatty liver presents to the ED today for evaluation of right knee pain that began after squatting at the gym yesterday. He states that while squatting, he heard a pop, from his right knee. He endorsed immediate pain which shot through his groin area. He has been able to ambulate however this induces pain. He has never had symptoms like this before. He has not taken any OTC pain medication for this at home. Denies tick or insect bites. Denies numbness/tingling/weakness of the right lower extremity, saddle anesthesia, bowel or bladder incontinence or retention, back pain. Related Data Previous Rx's ?Medication ?Instructions ?Recorded blood sugar diagnostic (FreeStyle #100 ea 10/18/23 Lite Strips) blood-glucose meter (FreeStyle #1 ea 10/18/23 [place] Lite kit) lancets 28 gauge (FreeStyle #100 ea 10/18/23 Lancets) metformin 500 mg tablet 500 mg PO DAILY 90 days #90 tabs 10/18/23 Allergies Allergy/AdvReac Type Severity Reaction Status Date / Time No Known Allergies Allergy Verified 01/02/24 10:14 [No Known Allergies*] Review of Systems Review of Systems: Constitutional: No fever, chills, fatigue, night sweats, weight changes ENT/Mouth: No ear pain, hearing loss, nasal congestion, sinus pain, rhinorrhea, sore throat Eyes: No eye pain, swelling, redness, vision changes, discharge Cardio: No chest pain, palpitations, CHAO, orthopnea, peripheral edema Pulm: No SOB, cough, sputum, wheezing, dyspnea, hemoptysis GI: No nausea, vomiting, hematemesis, abdominal pain, diarrhea, constipation, hematochezia, melena : No irregular bleeding, dysuria, frequency, urgency, hesitancy, hematuria, flank pain, urinary flow changes, urinary incontinence or retention MSK: No back pain, neck pain, myalgias, +right knee pain Skin: No lesions, rashes Neuro: No weakness, numbness, paresthesias, LOC, dizziness, headache Psych: No anxiety/panic, depression, SI/HI, AH/VH All other systems reviewed and are negative. [facility] Past Medical History Attestation statement: The following information was validated with the patient. Source: old records reviewed and nursing notes reviewed Surgical History No pertinent past surgical history Family History Family History Mother FH: HTN (hypertension) Lupus Fibromyalgia COPD (chronic obstructive pulmonary disease) Osteoarthritis Degenerative, intervertebral disc, cervical Type II diabetes mellitus Mental health disorder Father Type II diabetes mellitus Arthritis Social History Social History Housing: Apartment Alcohol intake: current Alcohol intake frequency: a few times a month Alcohol type: beer and hard liquor Patient Tobacco Use Status: Former Tobacco user Tobacco use type: Cigarette Cigarettes Per Day: 3 Years Smoked: Pt stop 12/21/21 e-Cigarette/Vaping Use: Former Use Second Hand Smoke Exposure: Yes Substance Use Type: Marijuana Advance Directives: No Do you have a plan to hurt others: No Plan service: No Current occupational status: employed 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[employer] Cognitive needs: No Hearing needs: No Vision needs: Yes (glasses) Physical Exam Vital Signs: Vital Signs: Last Vital Signs Temp 98.4 F 01/02/24 10:12 Pulse 71 01/02/24 10:12 Resp 18 01/02/24 10:12 BP 134/78 01/02/24 10:12 Pulse Ox 96 01/02/24 10:12 O2 Del Method Room Air 01/02/24 10:12 BMI result Body Mass Index 29.6 Vital signs stable Const: General: cooperative, healthy appearing, comfortable and no acute distr ess Orientation/consciousness: patient oriented x3 Limitations: no limitations HEENT: Head: Yes normal to inspection, Yes No palpable skull fracture present, Yes normocephalic and Yes atraumatic Eyes: General: appearance normal, both eyes and all related structures Conjunctivae: conjunctivae normal Sclerae: sclerae normal Pupils: Equal, round and reactive pupils present Neck: Neck: Yes normal visual inspection Resp: Effort & Inspection: normal respiratory effort and able to speak in complete sentences Auscultation: clear to auscultation bilaterally Cardio: Rate: regular rate Rhythm: regular rhythm Back/Spine/Pelvis: Other: No midline spinous tenderness or step off deformity. No paraspinal muscle tenderness. Skin: General skin exam: no rashes or lesions noted Neuro: General: patient oriented x3 and gait normal Cranial nerves: Yes Equal, round and reactive pupils present Extrem: Other: + right knee with notable swelling to me dial aspect of right knee. ttp. FROM intact ot right knee with pain on flexion. no high-riding patella. positive anterior drawer test. negative posterior drawer test. negative patellar grind test. negative patellar apprehension. ambulating with steady gait. 2+ radial and ulnar pulses. General: Yes normal to inspection, Yes no clubbing, cyanosis or edema, Yes no pedal edema and Yes no calf tenderness Course Course Course Narrative: 1134-- CT right knee showing small joint effusion, no obvious fracture. question ACL/PCL tear. will provide patient with knee immobilizer and crutches. advised to follow up with ortho. Patient has remained stable throughout ED visit today. Discussed worrisome signs and symptoms and when to return to the ED. All questions answered at this time. Patient is agreeable with disposition and stable for discharge. Medications Administered Discontinued Medications Generic Name Dose Route Start Last Admin Trade Name Freq PRN Reason Stop Dose Admin Ketorolac Tromethamine 30 mg 01/02/24 10:21 01/02/24 10:42 Ketorolac Tromethamine 30 Mg/Ml Vial IM 01/02/24 10:22 30 mg ONCE ONE Administration Medical Decision Making Medical Decision Making [facility] Narrative: 28-year-old male with pmhx significant for HDL, HTN, T2DM, and fatty liver presents to the ED today for evaluation of right knee pain that began after squatting at the gym yesterday. Vital signs stable. Afebrile. On exam, right knee with notable swelling to medial aspect of right knee. ttp. FROM intact ot right knee with pain on flexion. no high-riding patella. positive anterior drawer test. negative posterior drawer test. negative patellar grind test. negative patellar apprehension. Ambulating with steady gait. 2+ radial and ulnar pulses. Differential diagnosis includes ligament/tendon injury, contusion, fracture. Unlikely dislocation, neurovascular compromise, compartment syndrome, threat to limb, gout, pseudogout, septic joint, septic arthritis, Lyme arthritis. Plan for imaging, pain control, and re-evaluation. Differential Diagnosis Differential Diagnoses: The differential diagnosis associated with the presentation includes as above. Admission/Observation Consideration of admission/observation: Escalation of care including admission/observation considered Admission considered on arrival. Independent Interpretation I performed an independent interpretation of an: CT Scan Interpretation: CT scan right knee without fracture, agree with radiologist's interpretation. Radiology Impression Discussion of test interpretation with radiology: I have reviewed the radiologist's reading. Radiologist Impression: EXAMINATION: CT KNEE WITHOUT CONTRAST, RIGHT CLINICAL INFORMATION: Pain. Patient felt a pop while squatting. COMPARISON: None available. TECHNIQUE: Contiguous axial CT images of the right knee were obtained without contrast. Multiplanar reformats were provided and reviewed. This CT examination was performed using dose optimization techniques as appropriate, variously including the following: *Automated exposure control *Adjustment of mA and/or kV according to patient size (this includes techniques or standardized protocols for targeted exams where dose is matched to indication/reason for exam; i.e. extremities or head) *Use of iterative reconstruction technique DLP: 192 mGy-cm FINDINGS: No acute fracture or dislocation. Normal patellofemoral alignment. No significant joint space narrowing or marginal osteophytes. No concerning lytic or blastic osseous lesion. No evidence of avascular necrosis or bone infarcts. Small joint effusion. No soft tissue mass or fluid collection. Cruciate and collateral ligaments are grossly intact however, evaluation is significantly limited on CT examination. Menisci not well evaluated on CT. The visualized muscles and tendons are grossly intact. CT/CT knee RT wo IV con IMPRESSION: 1. No acute fracture or dislocation. 2. Small joint effusion. External Record Review External record reviewed: Inpatient record, Office record, Outpatient record, Prior outpatient labs, Prior outpatient radiology, Primary care record and Outside ED record Prescription Management I considered prescription management with: Pain Medication Social Determinants Patient?s care significantly limited by Social Determinants of Health including: Other Social Determinant of Health Procedures Orthopedic Splinting/Casting Injury #1: Side: right Lower Extremity Injury Location: knee Lower Extremity Immobilizer: knee immobilizer Other Orthopedic Equipment: crutches Critical Care Time Critical Care Time Critical Care Time: Yes Total Critical Care Time: 31 Attestation: Critical care time in the amount of 31 minutes has been provided to the patient in terms of direct patient care, frequent reevaluation, review and interpretation of medical data and results, and management of potentially life- threatening conditions. This is all outside of any medical procedures. Discharge Plan Discharge Clinical Impression: Right knee sprain Patient Disposition: Home, Self-Care Instructions: Knee Sprain (ED), Crutch Instructions (ED), Knee Immobilizer (ED) Additional Instructions: CT of your right knee does not show fracture however does show a small joint effusion. You were provided with a knee immobilizer and crutches. Use RICE treatment- rest, ice, compress, elevate the knee Please follow-up with ortho. You've been provided with their phone number. Call them to make an appointment. They will not call you. You may take Tylenol ibuprofen as needed for pain/discomfort. Return with new or worsening symptoms. In the case of an emergency call 911. Prescriptions: No Action metformin 500 mg tablet 500 mg PO DAILY 90 Days Qty: 90 1RF (DME) FreeStyle Lite Strips Strip See Rx Instructions .ROUTE .MEDSUPPLY Qty: 100 3RF Rx Instructions: As directed (DME) blood-glucose meter [FreeStyle [place] Lite] Kit See Rx Instructions .Route Qty: 1 0RF Rx Instructions: As directed (DME) lancets [FreeStyle Lancets] 28 gauge misc See Rx Instructions .ROUTE .MEDSUPPLY Qty: 100 3RF Rx Instructions: As directed Referrals: [facility] [place] [facility] [Provider Group] Feliz Louie PA-C [Primary Care Provider] - Stand Alone Forms: Work/School Release Print Language: Macedonian
[2024-01-02] MEDS: Ketorolac Tromethamine 30 MG/ML VIAL IM (10:42)
--- NOTE | 2024-01-02 10:44 | PC.NURSE ---
pt medicated per order
--- NOTE | 2024-01-02 11:54 | PC.NURSE ---
rt knee brace placed, crutch training performed
[2024-01-02 11:55] VITALS: BP 128/72; PULSE 72; RESP 18; TEMP 36.7; O2SAT 96
== END 2024-01-02 11:57 | disposition home or self-care (01) ==
PROVIDERS: Emergency Provider Emergency Medicine; PCP Physician Assistant
DX: S83.91XA Sprain of unspecified site of right knee, initial encounter (principal); X50.9XXA Other and unspecified overexertion or strenuous movements or postures, initial encounter; I10 Essential (primary) hypertension; E78.5 Hyperlipidemia, unspecified; E11.9 Type 2 diabetes mellitus without complications; Z79.891 Long term (current) use of opiate analgesic; Y93.B9 Activity, other involving muscle strengthening exercises; Y92.9 Unspecified place or not applicable; Y99.9 Unspecified external cause status
CPT/HCPCS: 73700; 96372; 99283; 99284; J1885

== ENCOUNTER 2024-01-09 10:33 | Outpatient (AMB) | payer BC, SELFPAY ==
--- NOTE | 2024-01-09 10:41 | MHC.OFFVIS ---
Vital Signs 01/09/24 10:47 Height 5 ft 8 in Weight 195 lb BMI 29.6 Handedness Left Intake Visit Reasons: New Pt - Right Knee Injury 01/01/24 Intake Note: Og is a 28 year old male who presents today as a new patient for a evaluation of his right knee pain. Patient reports his pain began after squatting at the gym on 01/01/24. He states when he is not wearing the brace he tends to feel his knee buckle when walking. Patient reports his pain is worse when getting out from his car and getting up from a seated position. Pain is on the lateral and medial aspect of the knee. He doesnt find relief when he is taking ibuprofen. Allergies No Known Allergies [No Known Allergies*] Allergy (Verified 01/02/24 10:14) HPI HPI New Pt - Right Knee Injury 01/01/24: Details: 28-year-old male who presents in the office today, as a new patient, for an evaluation of right knee pain. Patient presented to the ED on 01/02/2024 status post squatting at the gym, on 01/01/2024, when he heard a pop from the right knee. CT of the right knee was obtained. He was placed in a knee immobilizer and given crutches. While in the office today the patient confirms his pain began after he was squatting at the gym on 01/01/2024. He claims when he is not wearing the brace his right knee will buckle while ambulating. He reports an increase in pain when getting out of the car and up from a seated position. Claims his pain is along the lateral and medial aspect of the right knee. He confirms the use of Ibuprofen with no relief. Patient has a significant medical history of diabetes mellitus, type 2. [facility] Surgical History No pertinent past surgical history Family History Mother FH: HTN (hypertension) Lupus Fibromyalgia COPD (chronic obstructive pulmonary disease) Osteoarthritis Degenerative, intervertebral disc, cervical Type II diabetes mellitus Mental health disorder Father Type II diabetes mellitus Arthritis Social History Housing: Apartment Alcohol intake: current Alcohol intake frequency: a few times a month Alcohol type: beer and hard liquor Patient Tobacco Use Status: Former Tobacco user Tobacco use type: Cigarette Cigarettes Per Day: 3 Years Smoked: Pt stop 12/21/21 e-Cigarette/Vaping Use: Former Use Second Hand Smoke Exposure: Yes Substance Use Type: Marijuana service: No Current occupational status: employed 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 [employer] Cognitive needs: No Hearing needs: No Vision needs: Yes (glasses) Review of Systems Const All systems reviewed & are unremarkable except as noted in HPI and below Physical Exam Vital Signs: BMI result Body Mass Index 29.6 Const General: cooperative and no acute distress Orientation/consciousness: patient oriented x3 Resp Effort & Inspection: normal respiratory effort and able to speak in complete sentences Cardio Peripheral pulses: Peripheral pulses 2+ throughout Skin General skin exam: no rashes or lesions noted Neuro General: patient oriented x3 Extrem Other: Right knee: Normal to inspection. No ecchymosis, erythema, or joint effusion. Tenderness to palpation along the medial or lateral joint lines. Full knee extension and flexion. Roberto's causing pain along the medial and lateral joint lines. Negative anterior drawer. Negative laxity with varus or valgus stress. NVI. Assessment & Plan Assessment & Plan (1) Internal derangement of right knee: Code(s): M23.91 - Unspecified internal derangement of right knee Category: Medical Plan Mr. Yeboah is a 28-year-old male who presents in the office today, as a new patient, for an evaluation of right knee pain. Patient presented to the ED on 01/02/2024 status post squatting at the gym, on 01/01/2024, when he heard a pop from the right knee. CT of the right knee was obtained. He was placed in a knee immobilizer and given crutches. While in the office today the patient confirms his pain began after he was squatting at the gym on 01/01/2024. He claims when he is not wearing the brace his right knee will buckle while ambulating. He reports an increase in pain when getting out of the car and up from a seated position. Claims his pain is along the lateral and medial aspect of the right knee. He confirms the use of Ibuprofen with no relief. Patient has a significant medical history of diabetes mellitus, type 2. Patient may discontinue the use of knee immobilizer at this time. He may continue to use the crutches as needed. An order for an MRI has been placed in the office today. He will call the office once the MRI is obtained. Follow up will be after the MRI is obtained, or sooner if needed. X-rays of the right knee which were obtained while in the office today and were reviewed by me, Brenda Winkler PA-C, revealed no acute fracture or dislocation. CT of the right knee, obtained on 01/02/2024, revealed: 1. No acute fracture or dislocation 2. Small joint effusion. Orders: Orders XR knee RT 3V Today M25.569 - Pain in unspecified knee MR knee RT wo con Today M23.91 - Unspecified internal derangement of right knee Patient Instructions: Scribed by Conchita Rizvi medical support assistant, for Brenda Winkler PA-C on 01/09/2024 at 10:36 am, EST. Coding Level of Care Code New Pt Level 4 (14997) Diagnoses Internal derangement of right knee M23.91
[2024-01-09 10:47] VITALS: BMI 29.6
== END 2024-01-09 11:25 | disposition home or self-care (01) ==
PROVIDERS: PCP Physician Assistant; Visit Provider Physician Assistant
DX: M23.91 Unspecified internal derangement of right knee (principal)
CPT/HCPCS: 99203

== ENCOUNTER 2024-01-09 10:33 | Outpatient (REF) | payer BC, SELFPAY ==
--- NOTE | ~2024-01-09 | XR_ITS ---
EXAMINATION: XR KNEE, RIGHT CLINICAL INFORMATION: Pain in unspecified knee. COMPARISON: CT right knee 01/02/2024. TECHNIQUE: AP standing view of bilateral knees. Lateral and sunrise views of the right knee. FINDINGS: Right knee: No significant joint effusion. Bone mineralization is normal. Alignment preserved. AP standing view left knee: Medial and lateral compartments preserved. XR/XR knee RT 3V IMPRESSION: No displaced fracture. Additional imaging with CT scan or MRI should be considered for better visualization as these modalities are much more sensitive for detection of fracture or other underlying pathology.
== END 2024-01-09 10:34 | disposition home or self-care (01) ==
LOC: HO.HOSX 10:33
PROVIDERS: PCP Physician Assistant; Visit Provider Physician Assistant
DX: M23.91 Unspecified internal derangement of right knee (principal)
CPT/HCPCS: 73562

== ENCOUNTER 2024-02-27 07:26 | Outpatient (REF) | payer BC, SELFPAY ==
--- NOTE | ~2024-02-27 | MR_ITS ---
EXAMINATION: MR KNEE WITHOUT CONTRAST, RIGHT CLINICAL INFORMATION: Internal derangement of the right knee patient reports right knee injury and instability. COMPARISON: X-rays of the right knee December 2013. CT scan of the right knee December 2013 TECHNIQUE: MRI of the knee without contrast was performed using routine sequences on a high-field scanner. FINDINGS: MENISCI: Medial Meniscus: Intact Lateral Meniscus: Intact LIGAMENTS: Cruciate: ACL: Question mild increased signal throughout the ligament compatible with mucoid degeneration or subtle partial tearing. Most if not all the fibers are intact. PCL intact. Collateral: Intact EXTENSOR MECHANISM: Intact ARTICULAR CARTILAGE/BONE: Patellofemoral Compartment: Normal Medial Compartment: Normal Lateral Compartment: Normal JOINT FLUID AND BURSAE: Normal MR/MR knee RT wo con IMPRESSION: 1. Subtle findings in the ACL compatible with mucoid degeneration or subtle partial tearing. Favor mucoid degeneration. 2. Menisci intact.
== END 2024-02-27 07:27 | disposition home or self-care (01) ==
LOC: HO.MRI 07:26
PROVIDERS: PCP Physician Assistant; Visit Provider Physician Assistant
DX: M23.91 Unspecified internal derangement of right knee (principal)
CPT/HCPCS: 73721

== ENCOUNTER 2024-03-05 14:21 | Outpatient (AMB) | payer BC, SELFPAY ==
--- NOTE | 2024-03-05 14:39 | A.OFFVIS_ITS ---
Intake Visit Reasons: TEL-MRI review of his right knee Intake Note: Og is a 28 year old male who is on the phone for a telehealth visit for a MRI review of his right knee. Patient reports still having discomfort. He states no improvements as of yet. Allergies No Known Allergies [No Known Allergies*] Allergy (Verified 01/02/24 10:14) HPI HPI TEL-MRI review of his right knee: Details: 28-year-old male who presents in the office today for a review of his MRI results and follow-up of right knee pain. I last saw the patient in the office on 01/09/2024 when he was to discontinue the knee immobilizer and use the crutches PRN.? ? While in the office today, the patient reports continued discomfort with no improvement. ? PFSH Surgical History No pertinent past surgical history Family History Mother FH: HTN (hypertension) Lupus Fibromyalgia COPD (chronic obstructive pulmonary disease) Osteoarthritis Degenerative, intervertebral disc, cervical Type II diabetes mellitus Mental health disorder Father Type II diabetes mellitus Arthritis Social History Housing: Apartment Alcohol intake: current Alcohol intake frequency: a few times a month Alcohol type: beer and hard liquor Patient Tobacco Use Status: Former Tobacco user Tobacco use type: Cigarette Cigarettes Per Day: 3 Years Smoked: Pt stop 12/21/21 e-Cigarette/Vaping Use: Former Use Second Hand Smoke Exposure: Yes Substance Use Type: Marijuana service: No Current occupational status: employed 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 No ecchymosis, erythema, or joint effusion. No tenderness to palpation along the medial or lateral joint lines. Full knee extension and flexion. Negative Roberto's. Negative anterior drawer. NVI.?? Assessment & Plan Assessment & Plan (1) Internal derangement of right knee: Code(s): M23.91 - Unspecified internal derangement of right knee Category: Medical Plan Mr. Yeboah is a 28-year-old male who presents in the office today for a review of his MRI results and follow-up of right knee pain. I last saw the patient in the office on 01/09/2024 when he was to discontinue the knee immobilizer and use the crutches PRN.? ? While in the office today, the patient reports continued discomfort with no improvement. ? ? We discussed the role of physical therapy; however, he has elected to defer at this time. He would like to continue to return to normal activities as tolerated. I expressed that should the patient have any concerns he should reach out to the office, and I can place a referral for formal physical therapy. Follow-up will be PRN, or sooner if needed. ? ? MRI of the right knee, obtained on 02/27/2024, revealed:? 1. Subtle findings in the ACL compatible with mucoid degeneration or subtle partial tearing. Favor mucoid degeneration.? 2. Menisci intact.? Patient Instructions: ?Scribed by Conchita Rizvi medical voucher clerk, for Brenda Winkler PA-C on 03/05/2024 at 2:23 pm, EST.? Coding Level of Care Code Est Pt Level 3 (23992) Diagnoses Internal derangement of right knee M23.91
== END 2024-03-05 14:52 | disposition home or self-care (01) ==
PROVIDERS: PCP Physician Assistant; Visit Provider Physician Assistant
DX: M23.91 Unspecified internal derangement of right knee (principal)
CPT/HCPCS: 99213

== ENCOUNTER → 2024-03-05 14:21 | Outpatient (BNVA) | payer BC, SELFPAY | PROVIDERS: PCP Physician Assistant; Visit Provider Physician Assistant ==

== ENCOUNTER 2024-04-24 08:08 | Outpatient (REF) | payer BC, SELFPAY ==
[2024-04-24 08:56] LABS: Hematocrit 43.9 % (42.0-52.0); Hemoglobin 14.6 g/dl (14.0-18.0); Mean Corpuscular HGB Conc 33.3 g/dl (31.0-36.0); Mean Corpuscular Hemoglobin 29.1 pg (27.0-33.0); Mean Corpuscular Volume 87.6 fL (80.0-98.0); Mean Platelet Volume 10.2 fL (9.4-12.4); Platelet Count 230 X10*3/uL (160-400); Red Blood Count 5.01 X10*6/uL (4.60-5.80); White Blood Count 3.5 X10*3/uL (4.8-10.8)
[2024-04-24 09:03] LABS: Estimated Average Glucose 131 mg/dL; Hemoglobin A1c % 6.2 % (<6.0)
[2024-04-24 10:00] LABS: Alanine Aminotransferase 41 U/L (0-40); Albumin Level 4.2 g/dL (3.5-5.0); Alkaline Phosphatase 50 U/L (39-117); Anion Gap 12 (12-20); Aspartate Amino Transferase 40 U/L (5-37); Bilirubin Total 0.6 mg/dL (0.0-1.0); Blood Urea Nitrogen 14 mg/dL (9-16); Calcium 9.7 mg/dL (8.4-10.2); Carbon Dioxide 27 mmol/L (22-29); Chloride 103 mmol/L (96-108); Cholesterol 116 mg/dL (<200); Estimated Glomerular Filt Rate > 60; Glucose Fasting 119 mg/dL (60-99); HDL Cholesterol 39 mg/dL (>40); LDL Cholesterol Calculated 71 mg/dL (<100); Potassium 4.4 mmol/L (3.3-5.1); Sodium 138 mmol/L (135-145); Total Protein 7.2 g/dL (6.5-8.0); Triglycerides 33 mg/dL (<150)
== END 2024-04-24 08:09 | disposition home or self-care (01) ==
LOC: HO.LAB 08:08
PROVIDERS: PCP Physician Assistant; Visit Provider Physician Assistant
DX: E11.9 Type 2 diabetes mellitus without complications (principal); E78.2 Mixed hyperlipidemia
CPT/HCPCS: 36415; 80053; 80061; 83036; 85027

== ENCOUNTER 2024-04-24 09:27 | Outpatient (AMB) | payer BC, SELFPAY ==
[2024-04-24 09:34] VITALS: BP 118/80; PULSE 60; O2SAT 98; BMI 27.4
--- NOTE | 2024-04-24 09:34 | MHC.PC.OV ---
Vital Signs 04/24/24 09:34 Height 5 ft 8 in Weight 180 lb BMI 27.4 BP 118/80 Blood Pressure Location Lt brachial Position Sitting Pulse 60 Pulse Source Pulse Oximeter Pulse Oximetry (%) 98 Oxygen Delivery Method Room Air Intake Visit Reasons: Annual Exam Intake Note: Patient is here today for a physical. 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 Patient has a past medical history significant for type 2 diabetes,, obesity. .. Obesity :? Has lost weight since last office visit, going to the gym several times a week. BMI now at 27. . Type 2 diabetes:? Continues to stay consistent with metformin, has been more physically active and has lost weight. A1c now improved . Has not been taking his metformin on a daily basis. Needs refill Hyperlipidemia: Most recent lipid panel showing much improved total cholesterol and LDL. We disc discuss the possible need of starting statin medication though will continue lifestyle modifications and recheck lipids in the next 4 months.? He recently started going back to the gym ., Fatty liver disease: Most recent ultrasound abdomen showing consistent evidence of fatty liver disease. Most recent liver enzymes slightly elevated though have improved since he has been able to manage with weight loss.. He will work on lifestyle modifications and weight reduction as treatment for this fatty liver disease. Vaccines: Up-to-date with COVID vaccine, tetanus vaccine, considering flu vaccine this fall. Laboratory Tests 10/18/23 04/24/24 10:14 08:30 WBC 3.5 L RBC 5.01 Hgb A1c (Clinic) 7.4 H Hemoglobin A1c % 6.2 H PFSH Surgical History No pertinent past surgical history Family History Mother FH: HTN (hypertension) Lupus Fibromyalgia COPD (chronic obstructive pulmonary disease) Osteoarthritis Degenerative, intervertebral disc, cervical Type II diabetes mellitus Mental health disorder Father Type II diabetes mellitus Arthritis Social History (Updated 04/24/24 @ 09:52 by Feliz Louie PA-C) Housing: Apartment Alcohol intake: current Alcohol intake frequency: a few times a month Alcohol type: beer and hard liquor Patient Tobacco Use Status: Former Tobacco user Tobacco use type: Smokeless Tobacco Cigarettes Per Day: 3 Years Smoked: Pt stop 12/21/21 e-Cigarette/Vaping Use: Former Use Second Hand Smoke Exposure: Yes Substance Use Type: Marijuana service: No Current occupational status: employed 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 1. Little interest or pleasure in doing things: not at all 2. Feeling down, depressed, or hopeless: not at all 3. Trouble falling or staying asleep, or sleeping too much: not at all 4. Feeling tired or having little energy: not at all 5. Poor appetite or overeating: not at all 6. Feeling bad about yourself - or that you are a failure or have let yourself or your family down: not at all 7. Trouble concentrating on things, such as reading the newspaper or watching television: not at all 8. Moving or speaking so slowly that other people could have noticed. Or the opposite - being so fidgety or restless that you have been moving around a lot more than usual: not at all 9. Thoughts that you would be better off or of hurting yourself in some way: not at all Total score: 0 Depression Screening Interpretation: Negative Depression Screening Done: Yes 32609 - PHQ-9 Billing: Yes Source: Developed by Drs. Robert Alvarado, Katie Adame, Patel Vaughn and colleagues, with an educational jenny from [employer]. Thrive Questionnaire Date Thrive assessed: 10/18/23 I am a: Patient What is your living situation today?: I have a steady place to live Within the past 12 months, did the food you bought not last and you didn't have the money to get more?: Never true Within the past 12 months, did you worry whether your food would run out before you got money to buy more?: Never true Do you have trouble paying for medicines?: No Do you have trouble getting transportation to medical appointments?: No Do you have trouble paying your heating and electricity bill?: No Do you have trouble taking care of your child, family member or friend?: No Do you have trouble with day-to-day activities such as bathing, preparing meals, shopping, managing finances, etc.?: No Are you currently unemployed and looking for a job?: No Are you interested in more education?: No Please select the resources that you would like help with: None Currently or been in a relationship where the following occur: No concerns reported THRIVE Score: 0 AUDIT C Alcohol Use Questionnaire (AUDIT-C) 1. How often do you have a drink containing alcohol?: 2-4 times a month 2. How many drinks containing alcohol do you have on a typical day when you are drinking?: 1 or 2 3. How often do you have six or more drinks on one occasion?: Less than monthly Total Score: 3 EDUARDO-7 AMB Questionnaire EDUARDO-7 Date EDUARDO - 7 assessed: 04/24/24 Feeling nervous, anxious, or on edge: 0 = Not at all Not being able to stop or control worryin = Not at all Worrying too much about different things: 0 = Not at all Trouble relaxin = Not at all Being so restless that it is hard to sit still: 0 = Not at all Becoming easily annoyed or irritable: 0 = Not at all Feeling afraid as if something awful might happen: 0 = Not at all Total EDUARDO-7 score (0-4 normal; 5-9 mild; 10-14 moderate; 15-21 severe): 0 Source: Developed by Drs. Robert Alvarado, Katie Adame, Patel Vaughn and colleagues, with an educational jenny from [employer]. EDUARDO-7 Assessment Billing EDUARDO-7 Assessment Tool: EDUARDO-7 Assessment 22319 Review of Systems Const Denies body aches, Denies chills, Denies excessive sweating, Denies fatigue, Denies fever(s) and Denies headache(s) Eyes Denies blurry vision ENT Denies dysphagia, Denies vertigo, Denies dizziness, Denies headache(s), Denies hearing loss and Denies tinnitus Card Denies chest pain, Denies chest pain with activity, Denies syncope, Denies irregular heart rhythm and Denies dyspnea Resp Denies chest congestion, Denies cough, Denies hemoptysis, Denies dyspnea and Denies wheezing GI Denies abdominal pain, Denies melena, Denies hematochezia, Denies coffee ground emesis, Denies dysphagia, Denies diarrhea, Denies nausea and Denies vomiting Denies difficulty urinating, Denies dysuria, Denies urinary frequency, Denies urinary hesitancy and Denies urinary urgency Musc Denies arthralgias, Denies limited range of motion, Denies muscle cramps and Denies muscle weakness Skin/Breast Denies rash and Denies skin ulcer Neuro Denies Abnormal speech present, Denies confusion, Denies vertigo, Denies dizziness, Denies syncope, Denies headache(s), Denies memory loss and Denies seizure-like activity Psych Denies anxiety, Denies confusion, Denies depression, Denies memory loss, Denies panic attacks and Denies paranoia Endo Denies excessive sweating, Denies fatigue, Denies flushing, Denies polydipsia and Denies polyuria Aller/Immun Denies wheezing Physical exam (Primary Care) Vital Signs: Last Vital Signs Pulse 60 04/24/24 09:34 BP 118/80 04/24/24 09:34 Pulse Ox 98 04/24/24 09:34 Oxygen Delivery Method Room Air 04/24/24 09:34 BMI result Body Mass Index 27.4 Tobacco/Smoking Status: Tobacco use Status Tobacco use date assessed 10/18/23 04/24/24 09:37 Patient Tobacco Use Status Former Tobacco user 04/24/24 09:37 Tobacco use type Cigarette 04/24/24 09:37 e-Cigarette/Vaping Use Former Use 04/24/24 09:37 PHQ-9: PHQ-9 Score PHQ-9: Total score 0 04/24/24 09:40 Depression Screening Interpretation: Negative Thrive Assessment: Date of Thrive Assessment Date Thrive assessed 10/18/23 04/24/24 09:37 Currently or been in a relationship where the following occur: No concerns reported Const General: cooperative, comfortable, no acute distress, alert and awake; No confusion Orientation/consciousness: oriented to person, oriented to place, patient oriented x3 and No confusion HENMT Head: Yes normocephalic Ears: external ears normal and TM's normal bilaterally Face and sinus: No sinus tenderness Mouth: Normal oral and palatal mucosa present and tongue normal Teeth and gingiva: dentition normal and gingiva normal Throat: Yes posterior oropharynx normal, Yes tonsils normal and Yes uvula midline Eyes Conjunctivae: conjunctivae normal Sclerae: sclerae normal Pupils: Equal, round and reactive pupils present EOM: EOMs intact bilaterally Direct Ophthalmoscopy: No no photophobia Neck Neck: Yes no lymphadenopathy, No tender and Yes no JVD Thyroid: Thyroid normal Carotids: no bruits Chest Chest palpation & inspection: no tenderness Resp Effort & Inspection: normal respiratory effort, no audible wheezes, not labored and no stridor Auscultation: no crackles, no rales, no rhonchi and no wheezes Cardio Jugular venous distension: no JVD Rate: regular rate, not bradycardic and not tachycardic Rhythm: regular rhythm Bruits: no carotid bruits Peripheral pulses: Peripheral pulses 2+ throughout GI Inspection: Yes normal to inspection, No abdominal wall ecchymosis and No visible herniation Palpation (GI): Soft to palpation, nontender, no guarding, not rigid and No hepatosplenomegaly present Auscultation: normoactive bowel sounds General: Yes no CVA tenderness Back/Spine/Pelvis Back: no CVA tenderness and No back tenderness Cervical Spine: cervical ROM normal Thoracic/Lumbar Spine: thoracic and lumbar spine normal to inspection, straight leg raise negative bilaterally, No thoraco-lumbar ROM limited and No lumbar spinal tenderness Skin Lesions: no lesions Rashes: no rashes Wounds: no wounds Neuro General: oriented to person, oriented to place, patient oriented x3, CN's II-XI intact bilaterally and No confusion Cranial nerves: Yes Equal, round and reactive pupils present and Yes Normal accommodation reflex present Cognition (Neuro): normal cognition Speech: No Abnormal speech present Gait exam (Neuro): Normal gait present Motor exam (neuro): 5/5 motor strength present throughout Extrem Right upper extremity: full ROM; no cyanosis Left upper extremity: full ROM; no cyanosis Right lower extremity: no edema Left lower extremity: no edema Psych Appearance: grossly normal Mental Status: mental status grossly normal Affect: normal affect Attitude: cooperative Thought process: Normal thought process present Assessment and Plan Assessment & Plan (1) Annual physical exam: Code(s): Z00.00 - Encounter for general adult medical examination without abnormal findings (2) DMII (diabetes mellitus, type 2): Code(s): E11.9 - Type 2 diabetes mellitus without complications Qualifiers: Diabetes mellitus fci insulin use: without rat exterminator use Diabetes mellitus complication status: without complication Qualified Code(s): E11.9 - Type 2 diabetes mellitus without complications Plan: Patient's type 2 diabetes now well controlled. Today's A1c is 6.2. Has been compliant with the use of metformin. Has been much more physically active and has lost significant amount of weight since last office visit. Goal A1c to be below 6.5 (3) HLD (hyperlipidemia): Code(s): E78.5 - Hyperlipidemia, unspecified Qualifiers: Hyperlipidemia type: mixed hyperlipidemia Qualified Code(s): E78.2 - Mixed hyperlipidemia Plan: Patient's most recent lipid panel showed noting an LDL of 82. Goal LDL to be below 100. Will work on lifestyle modifications to reduce high cholesterol foods in his diet. (4) Fatty liver: Code(s): K76.0 - Fatty (change of) liver, not elsewhere classified Plan: Patient does have history of elevated liver enzymes. Has been working on lifestyle and dietary modifications. Has lost weight since last office visit. Will continue to monitor liver enzymes. (5) Leukopenia: Code(s): D72.819 - Decreased white blood cell count, unspecified Qualifiers: Leukopenia type: other Qualified Code(s): D72.818 - Other decreased white blood cell count Plan: Continues to note a slight leukopenia over the last several years. Otherwise he is asymptomatic without any recurrent infections. Will continue to follow CBC. Orders: Orders Comprehensive [place]. Panel Fast 4 Months E11.9 - Type 2 diabetes mellitus without complications Lipid Panel 4 Months E78.2 - Mixed hyperlipidemia Complete Blood Count no Diff 4 Months E78.2 - Mixed hyperlipidemia Medications: Refilled metformin 500 mg PO DAILY 90 days 90 tabs 1RF E11.9 - Type 2 diabetes mellitus without complications Patient Instructions: Goal: A1c to remain below 6.5, eventually get off medication Barriers: Adherence to physical activity and healthy eating habits Coding Level of Care Code Est Pt Prev Care [id number]([id number]) Diagnoses Annual physical exam Z00.00 Type 2 diabetes mellitus without complication, without long-term current use of insulin E11.9 Diabetes mellitus fci insulin use: without rat exterminator use Diabetes mellitus complication status: without complication Mixed hyperlipidemia E78.2 Hyperlipidemia type: mixed hyperlipidemia Fatty liver K76.0 Other decreased white blood cell (WBC) count D72.818 Leukopenia type: other Additional Codes EDUARDO-7 Assessment Billing - EDUARDO-7 Assessment Tool: EDUARDO-7 Assessment [id number] ([id number])
== END 2024-04-24 10:07 | disposition home or self-care (01) ==
PROVIDERS: PCP Physician Assistant; Visit Provider Physician Assistant
DX: Z00.00 Encounter for general adult medical examination without abnormal findings (principal); E11.9 Type 2 diabetes mellitus without complications; E78.2 Mixed hyperlipidemia; K76.0 Fatty (change of) liver, not elsewhere classified; D72.818 Other decreased white blood cell count
CPT/HCPCS: 99395

== ENCOUNTER 2024-08-27 08:11 | Outpatient (REF) | payer BC, SELFPAY ==
[2024-08-27 08:57] LABS: Hematocrit 45.3 % (42.0-52.0); Hemoglobin 15.2 g/dl (14.0-18.0); Mean Corpuscular HGB Conc 33.6 g/dl (31.0-36.0); Mean Corpuscular Hemoglobin 29.3 pg (27.0-33.0); Mean Corpuscular Volume 87.5 fL (80.0-98.0); Mean Platelet Volume 10.4 fL (9.4-12.4); Platelet Count 198 X10*3/uL (160-400); Red Blood Count 5.18 X10*6/uL (4.60-5.80); Red Cell Distribution Width 13.1 % (11.0-16.0); White Blood Count 4.3 X10*3/uL (4.8-10.8)
[2024-08-27 09:38] LABS: Alanine Aminotransferase 42 U/L (0-40); Albumin Level 4.4 g/dL (3.5-5.0); Alkaline Phosphatase 48 U/L (39-117); Anion Gap 12 (12-20); Aspartate Amino Transferase 35 U/L (5-37); Bilirubin Total 0.5 mg/dL (0.0-1.0); Blood Urea Nitrogen 18 mg/dL (9-16); Calcium 9.5 mg/dL (8.4-10.2); Carbon Dioxide 27 mmol/L (22-29); Chloride 105 mmol/L (96-108); Cholesterol 150 mg/dL (<200); Estimated Glomerular Filt Rate > 60; Glucose Fasting 132 mg/dL (60-99); HDL Cholesterol 47 mg/dL (>40); LDL Cholesterol Calculated 86 mg/dL (<100); Potassium 4.2 mmol/L (3.3-5.1); Sodium 140 mmol/L (135-145); Total Protein 7.6 g/dL (6.5-8.0); Triglycerides 86 mg/dL (<150)
== END 2024-08-27 08:12 | disposition home or self-care (01) ==
LOC: HO.LAB 08:11
PROVIDERS: PCP Physician Assistant; Visit Provider Physician Assistant
DX: E11.9 Type 2 diabetes mellitus without complications (principal); I10 Essential (primary) hypertension; E78.2 Mixed hyperlipidemia; E66.9 Obesity, unspecified; Z68.27 Body mass index [BMI] 27.0-27.9, adult; Z91.148 Patient's other noncompliance with medication regimen for other reason; Z28.21 Immunization not carried out because of patient refusal
CPT/HCPCS: 36415; 80053; 80061; 83036; 85027; 90471; 96127

== ENCOUNTER 2024-08-27 09:28 | Outpatient (AMB) | payer BC, SELFPAY ==
[2024-08-27 09:41] VITALS: BP 124/90; PULSE 67; O2SAT 99; BMI 27.4
--- NOTE | 2024-08-27 09:41 | A.OFFPC_ITS ---
Vital Signs 08/27/24 09:41 Height 5 ft 8 in Weight 180 lb 4 oz BMI 27.4 BP 124/90 H Blood Pressure Location Lt brachial Position Sitting Pulse 67 Pulse Source Pulse Oximeter Pulse Oximetry (%) 99 Oxygen Delivery Method Room Air Intake Visit Reasons: Follow-up type 2 diabetes Inpatient Auditor Required: No Accompanied by: Self / Same As Patient Allergies No Known Allergies [No Known Allergies*] Allergy (Verified 08/27/24 09:48) Medication List - Last Reconciled 08/27/24 by Feliz Louie PA-C blood sugar diagnostic (FreeStyle Lite Strips) As directed blood-glucose meter (FreeStyle [place] Lite kit) As directed lancets (FreeStyle Lancets) As directed metformin 500 mg PO DAILY 90 days Tobacco use date assessed: 08/27/24 Dental Screening Dental Screen Date: 08/27/24 Did you have a dental visit in the last 12 months?: No Did you have a dental problem in the last 6 months where you did not have access to dental care?: No Was dental information given to patient?: Patient has dentist HPI Follow-up type 2 diabetes HPI Details Patient is a 29-year-old male here today for a follow-up visit.? Patient has a past medical history significant for type 2 diabetes,, obesity. . Type 2 diabetes:? Has not been consistently using metformin. Today's A1c is 6.2. has been more physically active and has lost weight. Has not been taking his metformin on a daily basis. Hyperlipidemia: Most recent lipid panel showing much improved total cholesterol and LDL. He recently started going back to the gym ., Fatty liver disease: Most recent ultrasound abdomen showing consistent evidence of fatty liver disease. Most recent liver enzymes stable He will continue work on lifestyle modifications and weight reduction as treatment for this fatty liver disease. Laboratory Tests 10/18/23 04/24/24 08/27/24 10:14 08:30 08:22 WBC 3.5 L 4.3 L Fasting Glucose 119 H 132 H Hgb A1c (Clinic) 7.4 H Hemoglobin A1c % 6.2 H LDL Cholesterol, C alc 71 86 [facility] Surgical History No pertinent past surgical history Family History Mother FH: HTN (hypertension) Lupus Fibromyalgia COPD (chronic obstructive pulmonary disease) Osteoarthritis Degenerative, intervertebral disc, cervical Type II diabetes mellitus Mental health disorder Father Type II diabetes mellitus Arthritis Social History Housing: Apartment Alcohol intake: current Alcohol intake frequency: a few times a month Alcohol type: beer and hard liquor Patient Tobacco Use Status: Former Tobacco user Tobacco use type: Smokeless Tobacco Cigarettes Per Day: 3 Years Smoked: Pt stop 12/21/21 e-Cigarette/Vaping Use: Former Use Second Hand Smoke Exposure: Yes Substance Use Type: Marijuana service: No Current occupational status: employed Current occupation: [employer] Cognitive needs: No Hearing needs: No Vision needs: Yes (glasses) Questionnaire PHQ-9 Over the last 2 weeks, how often have you been bothered by any of the following problems? 1. Little interest or pleasure in doing things: not at all 2. Feeling down, depressed, or hopeless: not at all 3. Trouble falling or staying asleep, or sleeping too much: not at all 4. Feeling tired or having little energy: not at all 5. Poor appetite or overeating: not at all 6. Feeling bad about yourself - or that you are a failure or have let yourself or your family down: not at all 7. Trouble concentrating on things, such as reading the newspaper or watching television: not at all 8. Moving or speaking so slowly that other people could have noticed. Or the opposite - being so fidgety or restless that you have been moving around a lot more than usual: not at all 9. Thoughts that you would be better off or of hurting yourself in some way: not at all Total score: 0 Depression Screening Interpretation: Negative Depression Screening Done: Yes 87881 - PHQ-9 Billing: Yes Source: Developed by Drs. Robert Alvarado, Katie Adame, Patel Vaughn and colleagues, with an educational jenny from [employer]. Thrive Questionnaire Date Thrive assessed: 08/27/24 I am a: Patient What is your living situation today?: I have a steady place to live Within the past 12 months, did the food you bought not last and you didn't have the money to get more?: Never true Within the past 12 months, did you worry whether your food would run out before you got money to buy more?: Never true Do you have trouble paying for medicines?: No Do you have trouble getting transportation to medical appointments?: No Do you have trouble paying your heating and electricity bill?: No Do you have trouble taking care of your child, family member or friend?: No Do you have trouble with day-to-day activities such as bathing, preparing meals, shopping, managing finances, etc.?: No Are you currently unemployed and looking for a job?: No Are you interested in more education?: No Please select the resources that you would like help with: None Currently or been in a relationship where the following occur: No concerns reported THRIVE Score: 0 AUDIT C Alcohol Use Questionnaire (AUDIT-C) 1. How often do you have a drink containing alcohol?: 2-4 times a month 2. How many drinks containing alcohol do you have on a typical day when you are drinking?: 1 or 2 3. How often do you have six or more drinks on one occasion?: Less than monthly Total Score: 3 EDUARDO-7 AMB Questionnaire EDUARDO-7 Date EDUARDO - 7 assessed: 08/27/24 Feeling nervous, anxious, or on edge: 0 = Not at all Not being able to stop or control worryin = Not at all Worrying too much about different things: 0 = Not at all Trouble relaxin = Not at all Being so restless that it is hard to sit still: 0 = Not at all Becoming easily annoyed or irritable: 0 = Not at all Feeling afraid as if something awful might happen: 0 = Not at all Total EDUARDO-7 score (0-4 normal; 5-9 mild; 10-14 moderate; 15-21 severe): 0 Source: Developed by Drs. Robert Alvarado, Katie Adame, Patel Vaughn and colleagues, with an educational jenny from [employer]. EDUARDO-7 Assessment Billing EDUARDO-7 Assessment Tool: EDUARDO-7 Assessment 79344 Review of Systems Const Denies headache(s) Eyes Denies loss of vision ENT Denies vertigo, Denies dizziness, Denies headache(s) and Denies sore throat Card Denies chest pain, Denies leg edema and Denies lightheadedness Resp Denies cough, Denies hemoptysis and Denies wheezing GI Denies abdominal pain, Denies melena, Denies constipation, Denies diarrhea and Denies vomiting Denies dysuria, Denies urinary frequency and Denies urinary urgency Musc Denies arthralgias, Denies joint swelling, Denies numbness and Denies tingling Neuro Denies Abnormal speech present, Denies behavioral changes, Denies vertigo, Denies dizziness, Denies headache(s), Denies loss of vision, Denies memory loss, Denies numbness and Denies tingling Psych Denies anxiety, Denies behavioral changes, Denies depression, Denies memory loss and Denies panic attacks Jason/Lymph Denies easy bleeding and Denies easy bruising Aller/Immun Denies wheezing Physical exam (Primary Care) Vital Signs: Last Vital Signs Pulse 67 08/27/24 09:41 BP 124/90 H 08/27/24 09:41 Pulse Ox 99 08/27/24 09:41 Oxygen Delivery Method Room Air 08/27/24 09:41 BMI result Body Mass Index 27.4 Tobacco/Smoking Status: Tobacco use Status Tobacco use date assessed 08/27/24 08/27/24 09:43 Patient Tobacco Use Status Former Tobacco user 08/27/24 09:43 Tobacco use type Smokeless Tobacco 08/27/24 09:43 e-Cigarette/Vaping Use Former Use 08/27/24 09:43 PHQ-9: PHQ-9 Score PHQ-9: Total score 0 08/27/24 09:46 Depression Screening Interpretation: Negative Thrive Assessment: Date of Thrive Assessment Date Thrive assessed 08/27/24 08/27/24 09:43 Currently or been in a relationship where the following occur: No concerns reported Const General: healthy appearing, no acute distress, alert and awake Nutritional Appearance: well nourished Orientation/consciousness: oriented to person, oriented to place and oriented to time HENMT Ears: TM's normal bilaterally General nose exam: Normal nasal mucous membranes and turbinates present Eyes Conjunctivae: conjunctivae normal Sclerae: sclerae normal Pupils: Equal, round and reactive pupils present Neck Neck: Yes no lymphadenopathy and Yes no JVD Thyroid: Thyroid normal Carotids: no bruits Resp Effort & Inspection: normal respiratory effort and not tachypneic Auscultation: no crackles, no rales, no rhonchi and no wheezes Cardio Rate: regular rate Rhythm: regular rhythm Heart sounds: no murmurs and normal S1 and S2 GI Palpation (GI): Soft to palpation, nontender, no hepatomegaly and no splenomegaly Auscultation: normal bowel sounds Skin General skin exam: no rashes or lesions noted and dry skin Neuro General: oriented to person, oriented to place and oriented to time Cranial nerves: Yes Equal, round and reactive pupils present Speech: No Abnormal speech present Gait exam (Neuro): Normal gait present Motor exam (neuro): no tremor noted Extrem Right upper extremity: full ROM Left upper extremity: full ROM Right lower extremity: full ROM; no edema Left lower extremity: full ROM; no edema Psych Mental Status: mental status grossly normal Speech and movement: Normal speech and movement present Affect: normal affect Attitude: cooperative Thought process: Normal thought process present Office Procedures Flu Questionnaire Does the patient have a severe egg allergy?: No Results AMB Hemoglobin A1c AMB Hemoglobin A1c 6.1 % Last Edit by JESUS Bravo on 08/27/24 09:47 Immunizations Fluarix Triv [id number] (PF) 45 mcg (15 mcg x 3)/0.5 mL IM syringe Performing Provider: Feliz Louie PA-C [facility] Documented (not given) by: JESUS Bravo on 08/27/24 09:43 Reason Not Given: Patient Refused Coding Level of Care Code Est Pt Level 4 (41927) Diagnoses Type 2 diabetes mellitus without complication, without long-term current use of insulin E11.9 Diabetes mellitus mcfp insulin use: without mcfp use Diabetes mellitus complication status: without complication Primary hypertension I10 Hypertension type: primary hypertension Mixed hyperlipidemia E78.2 Hyperlipidemia type: mixed hyperlipidemia Additional Codes EDUARDO-7 Assessment Billing - EDUARDO-7 Assessment Tool: EDUARDO-7 Assessment 63937 ([id number]) PHQ-9 - 86240 - PHQ-9 Billing: Yes ([id number]) Assessment & Plan Assessment & Plan (1) DMII (diabetes mellitus, type 2): Code(s): E11.9 - Type 2 diabetes mellitus without complications Category: Medical Qualifiers: 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 He has not really been using metformin. Goal A1c is to remain below 6 point (2) HTN (hypertension): Code(s): I10 - Essential (primary) hypertension Category: Medical Qualifiers: Hypertension type: primary hypertension Qualified Code(s): I10 - Essential (primary) hypertension Plan: Patient's blood pressure acceptable today in office, well controlled with dietary and lifestyle modifications. (3) HLD (hyperlipidemia): Code(s): E78.5 - Hyperlipidemia, unspecified Category: Medical Qualifiers: Hyperlipidemia type: mixed hyperlipidemia Qualified Code(s): E78.2 - Mixed hyperlipidemia Plan: Patient's most recent lipid panel showing excellent control of his total cholesterol and LDL. Again dietary and lifestyle managed. Goal LDL is to remain below 100 Orders: Orders Microalbumin, Random (w Creat) Today E11.9 - Type 2 diabetes mellitus without complications Comprehensive [place]. Panel Fast Today E11.9 - Type 2 diabetes mellitus without complications Influenza [id number] Immunization Today Z23 - Encounter for immunization AMB Hemoglobin A1c Today E11.9 - Type 2 diabetes mellitus without complications Hemoglobin A1c Today E11.9 - Type 2 diabetes mellitus without complications Complete Blood Count no Diff Today I10 - Essential (primary) hypertension Medications: Refilled metformin 500 mg PO DAILY 90 days 90 tabs 1RF E11.9 - Type 2 diabetes mellitus without complications Patient Instructions: Goal: A1c to remain below 6.5 Barriers: Adherence to physical activity and healthy eating
== END 2024-08-27 09:59 | disposition home or self-care (01) ==
PROVIDERS: PCP Physician Assistant; Visit Provider Physician Assistant
DX: E11.9 Type 2 diabetes mellitus without complications (principal); I10 Essential (primary) hypertension; E78.2 Mixed hyperlipidemia; Z23 Encounter for immunization

== ENCOUNTER 2025-02-26 08:25 | Outpatient (REF) | payer BC, SELFPAY ==
[2025-02-26 09:50] LABS: Hematocrit 45.6 % (42.0-52.0); Hemoglobin 15.3 g/dl (14.0-18.0); Mean Corpuscular HGB Conc 33.6 g/dl (31.0-36.0); Mean Corpuscular Hemoglobin 29.4 pg (27.0-33.0); Mean Corpuscular Volume 87.7 fL (80.0-98.0); NRBC Abs Auto 0.000 X10*3/uL (0.0-0.012); NRBC Pct Auto 0.0 /100WBC (0.0-0.2); Platelet Count 199 X10*3/uL (160-400); Red Blood Count 5.20 X10*6/uL (4.60-5.80); White Blood Count 3.6 X10*3/uL (4.8-10.8)
[2025-02-26 09:55] LABS: Hemoglobin A1C 161.4455 umol/L; Total Hemoglobin (HGBA1C) 3982.4306 umol/L
[2025-02-26 10:34] LABS: Alanine Aminotransferase 51 U/L (0-40); Albumin Level 4.9 g/dL (3.5-5.0); Alkaline Phosphatase 46 U/L (39-117); Anion Gap 11 (12-20); Aspartate Amino Transferase 50 U/L (5-37); Blood Urea Nitrogen 20 mg/dL (9-16); Calcium 9.6 mg/dL (8.4-10.2); Carbon Dioxide 30 mmol/L (22-29); Chloride 102 mmol/L (96-108); Estimated Glomerular Filt Rate > 60; Potassium 4.2 mmol/L (3.3-5.1); Sodium 139 mmol/L (135-145); Total Protein 7.6 g/dL (6.5-8.0)
[2025-02-26 11:02] LABS: Microalbum/Creatinine Ratio Ur 26.2 ug/mg cr (<30)
== END 2025-02-26 08:26 | disposition home or self-care (01) ==
LOC: HO.LAB 08:25
PROVIDERS: PCP Physician Assistant; Visit Provider Physician Assistant
DX: E11.9 Type 2 diabetes mellitus without complications (principal); I10 Essential (primary) hypertension; E78.2 Mixed hyperlipidemia; E78.5 Hyperlipidemia, unspecified; K76.0 Fatty (change of) liver, not elsewhere classified
CPT/HCPCS: 36415; 80053; 82043; 82570; 83036; 85027; 96127

== ENCOUNTER 2025-02-26 09:34 | Outpatient (AMB) | payer BC, SELFPAY ==
--- NOTE | 2025-02-26 10:07 | A.OFFPC_ITS ---
Vital Signs 02/26/25 10:15 Height 5 ft 8 in Weight 176 lb 6 oz BMI 26.8 BP 104/64 Blood Pressure Location Rt brachial Position Sitting Pulse 62 Pulse Source Palpation Temp 97.1 F Temp Source Temporal Artery Scan Intake Visit Reasons: dm Contract Clerk Required: No Accompanied by: Self / Same As Patient Allergies No Known Allergies (No Known Allergies*) Allergy (Verified 02/26/25 10:38) Medication List - Last Reconciled 02/26/25 by Feliz Louie PA-C blood sugar diagnostic (FreeStyle Lite Strips) As directed blood-glucose meter (FreeStyle [place] Lite kit) As directed lancets (FreeStyle Lancets) As directed metformin 500 mg PO DAILY 90 days Tobacco use date assessed: 08/27/24 Dental Screening Dental Screen Date: 08/27/24 HPI dm HPI Details Patient is a 29-year-old male here today for a follow-up visit.? Patient has a past medical history significant for type 2 diabetes,, obesity. . Type 2 diabetes:? Currently his diabetes is dietary and lifestyle controlled. Most recent A1c at 5.9 from 6.1 has been more physically active and has lost weight. Has lost weight since last office visit. Has not been taking his metformin on a daily basis. Hyperlipidemia: Most recent lipid panel showing much improved total cholesterol and LDL. He is getting much more physical activity lately ., Fatty liver disease: Most recent ultrasound abdomen showing consistent evidence of fatty liver disease. Most recent liver enzymes stable He will continue work on lifestyle modifications and weight reduction as treatment for this fatty liver disease. Laboratory Tests 08/27/24 02/26/25 09:30 08:34 WBC 3.6 L Fasting Glucose 115 H Hgb A1c (Clinic) 6.1 H Hemoglobin A1c % 5.9 AST 50 H ALT 51 H [facility] Medical History (Updated 02/27/25 @ 07:20 by Feliz Louie PA-C) Internal derangement of right knee Surgical History No pertinent past surgical history Family History Mother FH: HTN (hypertension) Lupus Fibromyalgia COPD (chronic obstructive pulmonary disease) Osteoarthritis Degenerative, intervertebral disc, cervical Type II diabetes mellitus Mental health disorder Father Type II diabetes mellitus Arthritis Social History Housing: Apartment Alcohol intake: current Alcohol intake frequency: a few times a month Alcohol type: beer and hard liquor Patient Tobacco Use Status: Former Tobacco user Tobacco use type: Smokeless Tobacco Cigarettes Per Day: 3 Years Smoked: Pt stop 12/21/21 e-Cigarette/Vaping Use: Former Use Second Hand Smoke Exposure: Yes Substance Use Type: Marijuana service: No Current occupational status: employed 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 1. Little interest or pleasure in doing things: not at all 2. Feeling down, depressed, or hopeless: not at all 3. Trouble falling or staying asleep, or sleeping too much: not at all 4. Feeling tired or having little energy: not at all 5. Poor appetite or overeating: not at all 6. Feeling bad about yourself - or that you are a failure or have let yourself or your family down: not at all 7. Trouble concentrating on things, such as reading the newspaper or watching television: not at all 8. Moving or speaking so slowly that other people could have noticed. Or the opposite - being so fidgety or restless that you have been moving around a lot more than usual: not at all 9. Thoughts that you would be better off or of hurting yourself in some way: not at all Total score: 0 Depression Screening Interpretation: Negative Depression Screening Done: Yes 24953 - PHQ-9 Billing: Yes Source: Developed by Drs. Robert Alvarado, Katie Adame, Patel Vaughn and colleagues, with an educational jenny from [employer]. Thrive Questionnaire Date Thrive assessed: 02/26/25 I am a: Patient What is your living situation today?: I have a steady place to live Within the past 12 months, did the food you bought not last and you didn't have the money to get more?: Never true Within the past 12 months, did you worry whether your food would run out before you got money to buy more?: Never true Do you have trouble paying for medicines?: No Do you have trouble getting transportation to medical appointments?: No Do you have trouble paying your heating and electricity bill?: No Do you have trouble taking care of your child, family member or friend?: No Do you have trouble with day-to-day activities such as bathing, preparing meals, shopping, managing finances, etc.?: No Are you currently unemployed and looking for a job?: No Are you interested in more education?: No Please select the resources that you would like help with: None Currently or been in a relationship where the following occur: No concerns reported THRIVE Score: 0 AUDIT C Alcohol Use Questionnaire (AUDIT-C) 1. How often do you have a drink containing alcohol?: 2-4 times a month 2. How many drinks containing alcohol do you have on a typical day when you are drinking?: 3 or 4 3. How often do you have six or more drinks on one occasion?: Less than monthly Total Score: 4 EDUARDO-7 AMB Questionnaire EDUARDO-7 Date EDUARDO - 7 assessed: 02/26/25 Feeling nervous, anxious, or on edge: 0 = Not at all Not being able to stop or control worryin = Not at all Worrying too much about different things: 0 = Not at all Trouble relaxin = Not at all Being so restless that it is hard to sit still: 0 = Not at all Becoming easily annoyed or irritable: 0 = Not at all Feeling afraid as if something awful might happen: 0 = Not at all Total EDUARDO-7 score (0-4 normal; 5-9 mild; 10-14 moderate; 15-21 severe): 0 Source: Developed by Drs. Robert Alvarado, Katie Adame, Patel Vaughn and colleagues, with an educational jenny from [employer]. EDUARDO-7 Assessment Billing EDUARDO-7 Assessment Tool: EDUARDO-7 Assessment 26353 Review of Systems Const Denies headache(s) Eyes Denies loss of vision ENT Denies vertigo, Denies dizziness, Denies headache(s) and Denies sore throat Card Denies chest pain, Denies leg edema and Denies lightheadedness Resp Denies cough, Denies hemoptysis and Denies wheezing GI Denies abdominal pain, Denies melena, Denies constipation, Denies diarrhea and Denies vomiting Denies dysuria, Denies urinary frequency and Denies urinary urgency Musc Denies arthralgias, Denies joint swelling, Denies numbness and Denies tingling Neuro Denies Abnormal speech present, Denies behavioral changes, Denies vertigo, Denies dizziness, Denies headache(s), Denies loss of vision, Denies memory loss, Denies numbness and Denies tingling Psych Denies anxiety, Denies behavioral changes, Denies depression, Denies memory loss and Denies panic attacks Jason/Lymph Denies easy bleeding and Denies easy bruising Aller/Immun Denies wheezing Physical exam (Primary Care) Vital Signs: Last Vital Signs Temp 97.1 F 02/26/25 10:15 Pulse 62 02/26/25 10:15 BP 104/64 02/26/25 10:15 BMI result Body Mass Index 26.8 Tobacco/Smoking Status: Tobacco use Status Tobacco use date assessed 08/27/24 02/26/25 10:07 Patient Tobacco Use Status Former Tobacco user 02/26/25 10:07 Tobacco use type Smokeless Tobacco 02/26/25 10:07 e-Cigarette/Vaping Use Former Use 02/26/25 10:07 PHQ-9: PHQ-9 Score PHQ-9: Total score 0 02/26/25 10:40 Depression Screening Interpretation: Negative Thrive Assessment: Date of Thrive Assessment Date Thrive assessed 02/26/25 02/26/25 10:16 Currently or been in a relationship where the following occur: No concerns reported Const General: healthy appearing, no acute distress, alert and awake Nutritional Appearance: well nourished Orientation/consciousness: oriented to person, oriented to place and oriented to time [facility] Ears: TM's normal bilaterally General nose exam: Normal nasal mucous membranes and turbinates present Eyes Conjunctivae: conjunctivae normal Sclerae: sclerae normal Pupils: Equal, round and reactive pupils present Neck Neck: Yes no lymphadenopathy and Yes no JVD Thyroid: Thyroid normal Carotids: no bruits Resp Effort & Inspection: normal respiratory effort and not tachypneic Auscultation: no crackles, no rales, no rhonchi and no wheezes Cardio Rate: regular rate Rhythm: regular rhythm Heart sounds: no murmurs and normal S1 and S2 GI Palpation (GI): Soft to palpation, nontender, no hepatomegaly and no splenomegaly Auscultation: normal bowel sounds Skin General skin exam: no rashes or lesions noted and dry skin Neuro General: oriented to person, oriented to place and oriented to time Cranial nerves: Yes Equal, round and reactive pupils present Speech: No Abnormal speech present Gait exam (Neuro): Normal gait present Motor exam (neuro): no tremor noted Extrem Right upper extremity: full ROM Left upper extremity: full ROM Right lower extremity: full ROM; no edema Left lower extremity: full ROM; no edema Psych Mental Status: mental status grossly normal Speech and movement: Normal speech and movement present Affect: normal affect Attitude: cooperative Thought process: Normal thought process present Coding Level of Care Code Est Pt Level 4 (47906) Diagnoses Type 2 diabetes mellitus without complication, without long-term current use of insulin E11.9 Diabetes mellitus complication status: without complication Diabetes mellitus residential insulin use: without extermination supervisor use Primary hypertension I10 Hypertension type: primary hypertension Mixed hyperlipidemia E78.2 Hyperlipidemia type: mixed hyperlipidemia Fatty liver K76.0 Additional Codes EDUARDO-7 Assessment Billing - EDUARDO-7 Assessment Tool: EDUARDO-7 Assessment 99313 ([id number]) PHQ-9 - 69476 - PHQ-9 Billing: Yes ([id number]) Assessment & Plan Assessment & Plan (1) DMII (diabetes mellitus, type 2): Code(s): E11.9 - Type 2 diabetes mellitus without complications Category: Medical Qualifiers: Diabetes mellitus complication status: without complication Diabetes mellitus residential insulin use: without extermination supervisor use Qualified Code(s): E11.9 - Type 2 diabetes mellitus without complications Plan: Patient's type 2 diabetes has been well controlled with lifestyle and dietary modifications. Goal A1c is to remain below 6.0 (2) HTN (hypertension): Code(s): I10 - Essential (primary) hypertension Category: Medical Qualifiers: Hypertension type: primary hypertension Qualified Code(s): I10 - Essential (primary) hypertension Plan: Patient's blood pressure acceptable today in office, well controlled with dietary and lifestyle modifications. (3) HLD (hyperlipidemia): Code(s): E78.5 - Hyperlipidemia, unspecified Category: Medical Qualifiers: Hyperlipidemia type: mixed hyperlipidemia Qualified Code(s): E78.2 - Mixed hyperlipidemia Plan: Patient's most recent lipid panel showing excellent control of his total cholesterol and LDL. Again dietary and lifestyle managed. Goal LDL is to remain below 100 (4) Fatty liver: Code(s): K76.0 - Fatty (change of) liver, not elsewhere classified Category: Medical Plan: Patient remains was slightly elevated liver enzymes, ultrasound of abdomen does show fatty liver disease. He has been working on weight reduction and better eating habits. Orders: Orders Comprehensive [place]. Panel Fast 02/26/25 E11.9 - Type 2 diabetes mellitus without complications Complete Blood Count no Diff 02/26/25 E11.9 - Type 2 diabetes mellitus without complications Hemoglobin A1c 02/26/25 E11.9 - Type 2 diabetes mellitus without complications Lipid Panel 02/26/25 E78.2 - Mixed hyperlipidemia Medications: Discontinued metformin Discontinued Reason: Doctor's Order 500 mg PO DAILY 90 days 90 tabs 1RF E11.9 - Type 2 diabetes mellitus without complications Patient Instructions: Goal: A1c to remain below 6.5, LDL to remain below 100 Barriers: Adherence to physical activity and healthy eating habits
[2025-02-26 10:15] VITALS: BP 104/64; PULSE 62; TEMP 36.2; BMI 26.8
== END 2025-02-26 10:49 | disposition home or self-care (01) ==
LOC: HO.HMCH 09:35
PROVIDERS: PCP Physician Assistant; Visit Provider Physician Assistant
DX: E11.9 Type 2 diabetes mellitus without complications (principal); I10 Essential (primary) hypertension; E78.2 Mixed hyperlipidemia; K76.0 Fatty (change of) liver, not elsewhere classified